=== PATIENT | male | born 1950 | race Caucasian/White ===

== ENCOUNTER → 2017-08-26 | Outpatient (CLI) | payer BC, MEDICARE ==
--- NOTE | 2017-09-02 13:50 | HM ---
24-hour Holter monitor shows sinus mechanism heart rates from 36-111 beats a minute Nighttime bradycardia No daytime bradycardia Patient has PVCs ventricular couplets and triplets but the overall PVC burden is low and less than 1% No sustained VT MTDD
== END | disposition home or self-care (01) ==
LOC: RADECHMAIN 12:23
PROVIDERS: ATTEND Internal Medicine Interventional Cardiology
DX: I48.91 Unspecified atrial fibrillation (principal); I10 Essential (primary) hypertension
CPT/HCPCS: 93225; 93226

== ENCOUNTER → 2017-10-07 | Outpatient (CLI) | payer MEDICARE ==
[2017-10-07 14:38] LABS: MCH 33.7 pg (25.0-35.0); MCHC 36.9 g/dL (31.0-37.0); MCV 91.3 fL (80.0-100.0); Mean Platelet Volume 7.8; Platelet Count 190 k/uL (150-450); RBC 5.04 m/uL (4.30-5.90); RDW 13.2 % (11.5-15.5); WBC 10.2 k/uL (3.8-10.6)
[2017-10-07 14:55] LABS: Anion Gap 8 mmol/L; Blood Urea Nitrogen 18 mg/dL (9-20); Carbon Dioxide 29 mmol/L (22-30); Chloride 102 mmol/L (98-107); Potassium 3.8 mmol/L (3.5-5.1); Sodium 139 mmol/L (137-145)
== END | disposition home or self-care (01) ==
LOC: LABPAT 14:11
PROVIDERS: ATTEND Internal Medicine Interventional Cardiology
DX: Z01.812 Encounter for preprocedural laboratory examination (principal); I48.91 Unspecified atrial fibrillation
CPT/HCPCS: 36415; 80051; 82565; 84520; 85027

== ENCOUNTER → 2017-10-13 | Day surgery (SDC) | payer MEDICARE ==
[2017-10-11 14:34] VITALS: BMI 43.6
[~2017-10-13] MED LIST: LACTATED RINGERS 1,000 ML IV SCH; LIDOCAINE 1% INJ 10MG/ML (20 ML MDV) ONE; PROPOFOL 10 MG/ML 20 ML VIAL IV ONE; SODIUM CHLORIDE 0.9% 1,000 ML IV SCH
[2017-10-13 09:05] VITALS: TEMP 98.2
[2017-10-13 09:20] LABS: Glucose,Whole Blood 175 mg/dL (75-99)
--- NOTE | 2017-10-13 10:31 | CE ---
CARDIAC ELECTROPHYSIOLOGY REPORT DATE OF SERVICE: 10/13/2017 PROCEDURE: Electrical cardioversion. INDICATION: Persistent atrial fibrillation. CLINICAL INFORMATION: Mr. Izabela Michele is a 66-year-old gentleman with history of hypertension, hyperlipidemia, and probably recent onset persistent atrial fibrillation, unresponsive to pharmacological efforts. He was advised electrical cardioversion and brought in for the procedure electively. PROCEDURE NOTE: Under the influence of ultra short-acting intravenous anesthetic agent with the attendance of the anesthesiologist, two shocks were delivered with anterior and posterior patches in a synchronized fashion of 300 joules each. Patient did not convert to sinus rhythm and remained in atrial fib with a controlled rate. He was hemodynamically stable and neurologically intact. This was an unsuccessful electrical cardioversion. MMODL / IJN: [id number] /
[2017-10-13 11:02] VITALS: BP 151/88; PULSE 70; RESP 18
== END ==
LOC: CATHCVL 08:29
PROVIDERS: ATTEND Internal Medicine Interventional Cardiology
DX: I48.1 Persistent atrial fibrillation (principal); I10 Essential (primary) hypertension; E78.00 Pure hypercholesterolemia, unspecified; Z98.84 Bariatric surgery status; E66.01 Morbid (severe) obesity due to excess calories; Z68.41 Body mass index [BMI] 40.0-44.9, adult; E11.9 Type 2 diabetes mellitus without complications; I25.10 Atherosclerotic heart disease of native coronary artery without angina pectoris; F17.210 Nicotine dependence, cigarettes, uncomplicated; Z79.01 Long term (current) use of anticoagulants; Z79.84 Long term (current) use of oral hypoglycemic drugs; Z79.899 Other long term (current) drug therapy
CPT/HCPCS: 92960; J2001; J2704

== ENCOUNTER 2020-01-15 21:30 | Emergency (ER) | payer MEDICARE ==
[2020-01-15] MEDS ORDERED: ACETAMINOPHEN TAB 325 MG TAB PO STA (22:25)
--- NOTE | 2020-01-15 22:28 | ED ---
SOB HPI - General Chief Complaint: Shortness of Breath Stated Complaint: High BP,SOB Time Seen by Provider: 01/15/20 22:02 Source: patient Mode of arrival: ambulatory Limitations: no limitations - History of Present Illness Initial Comments: 's patient is a 69-year-old man who presents to be evaluated for shortness of breath. The patient states that he noticed he was feeling generalized fatigue all day. He states that he was getting ready for bed tonight and then he put on his home CPAP machine and started feeling like he was short of breath. The patient states that he took his blood pressure at home and it was over 200 systolic. He also had a fever to 101 at home. Patient denies chest pain or cough. No congestion or sore throat. He does note that he is feeling better now, with no dyspnea. MD Complaint: shortness of breath Onset/Timin -: days(s) Severity scale (1-10): 0 Consistency: constant Improves With: nothing Worsens With: nothing Treatments Prior to Arrival: none - Related Data Home Oxygen Therapy: No Home Medications Medication Instructions Recorded Confirmed Multivitamin [Men's Multi-Vitamin] 1 tab PO DAILY 07/04/14 01/15/20 Metoprolol Tartrate [Lopressor] 25 mg PO HS 10/11/17 01/15/20 Metoprolol Tartrate [Lopressor] 50 mg PO DAILY 10/11/17 01/15/20 Potassium Chloride [Klor-Con 20] 20 meq PO DAILY 10/11/17 01/15/20 Rivaroxaban [Xarelto] 20 mg PO DAILY 10/11/17 01/15/20 hydrALAZINE HCL [Apresoline] 50 mg PO BID 10/11/17 01/15/20 metFORMIN HCL [Glucophage] 500 mg PO BID 10/11/17 01/15/20 Glimepiride [Amaryl] 2 mg PO AC-BRKFST 01/15/20 01/15/20 Losartan Potassium 100 mg PO DAILY 01/15/20 01/15/20 Pioglitazone [Actos] 15 mg PO DAILY 01/15/20 01/15/20 amLODIPine [Norvasc] 5 mg PO DAILY 01/15/20 01/15/20 hydroCHLOROthiazide [Hydrodiuril] 25 mg PO DAILY 01/15/20 01/15/20 Allergies Allergy/AdvReac Type Severity Reaction Status Date / Time nitrofurantoin Allergy Rash/Hives Verified 01/15/20 23:24 [From Macrobid] nitrofurantoin Allergy Rash/Hives Verified 01/15/20 23:24 macrocrystalline [From Macrobid] Penicillins Allergy Unknown Verified 01/15/20 23:24 Childhood Review of Systems ROS Statement: Those systems with pertinent positive or pertinent negative responses have been documented in the HPI. ROS Other: All systems not noted in ROS Statement are negative. Constitutional: Reports: fever. Denies: chills, weakness ENT: Denies: throat pain, congestion Respiratory: Reports: dyspnea. Denies: cough, wheezes, hemoptysis Cardiovascular: Denies: chest pain, palpitations, orthopnea, edema, syncope Endocrine: Reports: fatigue Gastrointestinal: Denies: abdominal pain, nausea, vomiting Genitourinary: Denies: dysuria, hematuria Skin: Denies: rash Neurological: Denies: headache, weakness, numbness Past Medical History Past Medical History: Cancer, Prostate Disorder, Sleep Apnea/CPAP/BIPAP Additional Past Medical History / Comment(s): HX OF BLADDER CA, HX BLADDER STONES, RECURRENT UTI, CPAP @ HS History of Any Multi-Drug Resistant Organisms: None Reported Past Surgical History: Prostate Surgery Additional Past Surgical History / Comment(s): BLADDER STONES ,LAP BAND, COLONOSCOPY, LEFT KIDNEY SURGERY Past Anesthesia/Blood Transfusion Reactions: No Reported Reaction Past Psychological History: No Psychological Hx Reported Past Alcohol Use History: Occasional Past Drug Use History: None Reported - Past Family History Father Family Medical History: Cancer Additional Family Medical History / Comment(s): Colon cancer. Mother Family Medical History: Diabetes Mellitus, Hypertension General Exam Limitations: no limitations General appearance: alert, in no apparent distress Head exam: Present: atraumatic, normocephalic Eye exam: Present: normal appearance. Absent: scleral icterus, conjunctival injection ENT exam: Present: normal oropharynx Neck exam: Present: normal inspection, full ROM Respiratory exam: Present: normal lung sounds bilaterally. Absent: respiratory distress, wheezes, rales, rhonchi, stridor Cardiovascular Exam: Present: regular rate, normal rhythm, normal heart sounds. Absent: systolic murmur, diastolic murmur, rubs, gallop GI/Abdominal exam: Present: soft. Absent: distended, tenderness, guarding, rebound, rigid, mass Extremities exam: Present: normal inspection, normal capillary refill. Absent: pedal edema, calf tenderness Back exam: Present: normal inspection. Absent: CVA tenderness (R), CVA tenderness (L) Neurological exam: Present: alert Skin exam: Present: warm, dry, intact, normal color. Absent: rash Course Vital Signs 01/15/20 01/15/20 21:55 22:57 Temperature 99.7 F H Pulse Rate 74 62 Respiratory 18 20 Rate Blood Pressure 159/90 147/77 O2 Sat by Pulse 95 95 Oximetry Medical Decision Making - Lab Data Result diagrams: 01/15/20 22:56 01/15/20 22:56 Lab Results 01/15/20 01/15/20 01/15/20 Range/Units 22:56 22:56 22:56 WBC 9.2 (3.8-10.6) k/uL RBC 5.03 (4.30-5.90) m/uL Hgb 15.7 (13.0-17.5) gm/dL Hct 46.5 (39.0-53.0) % MCV 92.5 (80.0-100.0) fL MCH 31.2 (25.0-35.0) pg MCHC 33.8 (31.0-37.0) g/dL RDW 13.2 (11.5-15.5) % Plt Count 190 (150-450) k/uL MPV 7.4 Neutrophils % 75 % Lymphocytes % 12 % Monocytes % 7 % Eosinophils % 2 % Basophils % 4 % Neutrophils # 6.9 (1.3-7.7) k/uL Lymphocytes # 1.1 (1.0-4.8) k/uL Monocytes # 0.7 (0-1.0) k/uL Eosinophils # 0.2 (0-0.7) k/uL Basophils # 0.3 H (0-0.2) k/uL PT 10.3 (9.0-12.0) sec INR 1.0 (<1.2) APTT 25.9 (22.0-30.0) sec D-Dimer 0.25 (<0.60) mg/L FEU Sodium 135 L (137-145) mmol/L Potassium 3.8 (3.5-5.1) mmol/L Chloride 102 (98-107) mmol/L Carbon Dioxide 27 (22-30) mmol/L Anion Gap 6 mmol/L BUN 18 (9-20) mg/dL Creatinine 1.05 (0.66-1.25) mg/dL Est GFR (CKD-EPI)AfAm 83 (>60 ml/min/1.73 sqM) Est GFR (CKD-EPI)NonAf 72 (>60 ml/min/1.73 sqM) Glucose 148 H (74-99) mg/dL Plasma Lactic Acid Fernando (0.7-2.0) mmol/L Calcium 8.5 (8.4-10.2) mg/dL Total Bilirubin 0.5 (0.2-1.3) mg/dL AST 30 (17-59) U/L ALT 28 (4-49) U/L Alkaline Phosphatase 59 (38-126) U/L Troponin I (0.000-0.034) ng/mL NT-Pro-B Natriuret Pep pg/mL Total Protein 6.7 (6.3-8.2) g/dL Albumin 3.8 (3.5-5.0) g/dL 01/15/20 01/15/20 01/15/20 Range/Units 22:56 22:56 22:56 WBC (3.8-10.6) k/uL RBC (4.30-5.90) m/uL Hgb (13.0-17.5) gm/dL Hct (39.0-53.0) % MCV (80.0-100.0) fL MCH (25.0-35.0) pg MCHC (31.0-37.0) g/dL RDW (11.5-15.5) % Plt Count (150-450) k/uL MPV Neutrophils % % Lymphocytes % % Monocytes % % Eosinophils % % Basophils % % Neutrophils # (1.3-7.7) k/uL Lymphocytes # (1.0-4.8) k/uL Monocytes # (0-1.0) k/uL Eosinophils # (0-0.7) k/uL Basophils # (0-0.2) k/uL PT (9.0-12.0) sec INR (<1.2) APTT (22.0-30.0) sec D-Dimer (<0.60) mg/L FEU Sodium (137-145) mmol/L Potassium (3.5-5.1) mmol/L Chloride (98-107) mmol/L Carbon Dioxide (22-30) mmol/L Anion Gap mmol/L BUN (9-20) mg/dL Creatinine (0.66-1.25) mg/dL Est GFR (CKD-EPI)AfAm (>60 ml/min/1.73 sqM) Est GFR (CKD-EPI)NonAf (>60 ml/min/1.73 sqM) Glucose (74-99) mg/dL Plasma Lactic Acid Fernando 1.3 (0.7-2.0) mmol/L Calcium (8.4-10.2) mg/dL Total Bilirubin (0.2-1.3) mg/dL AST (17-59) U/L ALT (4-49) U/L Alkaline Phosphatase (38-126) U/L Troponin I 0.013 (0.000-0.034) ng/mL NT-Pro-B Natriuret Pep 758 pg/mL Total Protein (6.3-8.2) g/dL Albumin (3.5-5.0) g/dL - EKG Data -: EKG Interpreted by Mi EKG shows normal: axis (Left axis deviation), intervals (Normal), QRS complexes (There is appear to be an incomplete right bundle branch block.) Interpretation: other (Underlying rhythm is atrial fibrillation, which is chronic, rate 72 bpm. low-voltage QRS complex) Disposition Clinical Impression: Dyspnea Disposition: HOME SELF-CARE Condition: Good Instructions (If sedation given, give patient instructions): Dyspnea (ED) Is patient prescribed a controlled substance at d/c from ED?: No Referrals: Marcelino Gomez MD [Primary Care Provider] - 1-2 days
--- NOTE | 2020-01-15 22:44 | XR ---
EXAMINATION TYPE: XR chest 2V DATE OF EXAM: 01/15/2020 COMPARISON: NONE HISTORY: Fever and cough TECHNIQUE: FINDINGS: Heart is normal. Lungs are clear. Diaphragm is normal. Bony thorax is intact. There are no hilar masses. Mediastinum is within normal limits. IMPRESSION: Normal chest.
[2020-01-15 23:07] LABS: Basophils # (A) 0.3 k/uL (0-0.2); Basophils % (A) 4 %; Eosinophils # (A) 0.2 k/uL (0-0.7); Eosinophils % (A) 2 %; HCT 46.5 % (39.0-53.0); HGB 15.7 gm/dL (13.0-17.5); Lymphocytes # (A) 1.1 k/uL (1.0-4.8); Lymphocytes % (A) 12 %; MCH 31.2 pg (25.0-35.0); MCHC 33.8 g/dL (31.0-37.0); MCV 92.5 fL (80.0-100.0); Mean Platelet Volume 7.4; Monocytes # (A) 0.7 k/uL (0-1.0); Monocytes % (A) 7 %; Neutrophils # (A) 6.9 k/uL (1.3-7.7); Neutrophils % (A) 75 %; Platelet Count 190 k/uL (150-450); RBC 5.03 m/uL (4.30-5.90); RDW 13.2 % (11.5-15.5); WBC 9.2 k/uL (3.8-10.6)
[2020-01-15 23:15] LABS: Albumin 3.8 g/dL (3.5-5.0); Calcium 8.5 mg/dL (8.4-10.2); Potassium 3.8 mmol/L (3.5-5.1); Total Bilirubin 0.5 mg/dL (0.2-1.3); Total Protein 6.7 g/dL (6.3-8.2)
[2020-01-15 23:23] LABS: D-Dimer 0.25 mg/L FEU (<0.60); Partial Thromboplastin Time 25.9 sec (22.0-30.0); Prothrombin Time 10.3 sec (9.0-12.0)
[2020-01-16 00:07] VITALS: BP 156/81; PULSE 68; RESP 18; TEMP 97.7
== END 2020-01-16 00:20 | disposition home or self-care (01) ==
LOC: EC 21:30
DX: U07.1 COVID-19 (principal); G47.30 Sleep apnea, unspecified; Z88.0 Allergy status to penicillin; Z88.1 Allergy status to other antibiotic agents; Z85.51 Personal history of malignant neoplasm of bladder; Z99.89 Dependence on other enabling machines and devices; Z98.890 Other specified postprocedural states
CPT/HCPCS: 36415; 93005; 85379; 83880; 80053; 83605; 84484; 85025; 85610; 85730; 84145; 71046; 99285; U0003

== ENCOUNTER → 2022-02-09 | Outpatient (CLI) | payer MEDICARE ==
--- NOTE | 2022-02-09 15:03 | P.BASOAP ---
Subjective Progress Note Date: 02/09/22 Principal diagnosis: Morbid obesity 71-year-old male here with complaints of dysphagia. Patient had a lap band placed 15-20 years ago. Many years ago the patient has band emptied. He is not sure how much fluid is removed and what size band he had at that time. He says his esophagus was dilated back then. Over the last few months patient has had increased dysphagia and regurgitation. He has had significant weight loss in the last few months. Objective - Exam Abdomen: Soft, nontender, nondistended Assessment/Plan (1) Morbid obesity Narrative/Plan: 71-year-old male with dysphagia after previous lap band placement. Will empty the patient's band at this time. Check esophagogram. Further recommendations to follow. The patient's lap band port was palpated. The site was aseptically prepped. The Fernandez needle was advanced into the port. A total of 1 ml of fluid was removed. Band was now empty. Pressure was held and a sterile dressing was applied. Plan: Date: Initial Weight: Initial BMI: Current Weight: Current BMI: Type of Surgery: Total Volume in Band: Previous Volume: Volume Removed: Volume Added: Band Size:
[2022-02-09 15:33] VITALS: BP 170/99; PULSE 70; TEMP 97.3; BMI 41.5
--- NOTE | 2022-02-09 17:20 | FL ---
SINGLE CONTRAST BARIUM SWALLOW: CLINICAL HISTORY: 71-year-old male R13.10, dysphagia , food sticking, rapid weight loss. TECHNIQUE: Single contrast exam performed with one large swallow of thin barium. Total fluoroscopy time: 1 minute 42 seconds. Total images: 18. FINDINGS: Lap band device remains appropriately positioned. We assessed the cervical esophagus during the initi al swallow. There is no cricopharyngeal bar, diverticulum, narrowing, or aspiration. There is passage of contrast to the distal esophagus. Recurrent episodes of intraesophageal reflux an d peristaltic waves attempt to propulse the bolus into the stomach but there is the appearance of irr egular narrowing esophagus above the GE junction. Secondary dilatation of the distal esophagus. Contr ast remains pooled in the thoracic esophagus into the upper chest. Only trickle flow into the proxima l stomach then across the lap band into the distal stomach. IMPRESSION: Distal esophageal stricture resulting in a moderate to severe obstruction. Recommend direct visualiza tion as a malignant stricture is not excluded. The stricture is at the distal esophagus, prior to the upper stomach and lap band. No evidence for lap band prolapse. The patient had only a single large s wallow and the contrast pools to the upper chest.
== END ==
LOC: BARWHC3 14:25
PROVIDERS: ATTEND Surgery
DX: E66.01 Morbid (severe) obesity due to excess calories (principal); F17.200 Nicotine dependence, unspecified, uncomplicated; Z68.41 Body mass index [BMI] 40.0-44.9, adult; Z88.0 Allergy status to penicillin; Z88.1 Allergy status to other antibiotic agents
CPT/HCPCS: 74220; G0463; 99213

== ENCOUNTER 2022-02-11 12:06 | Day surgery (SDC) | payer MEDICARE ==
[2022-02-10 14:26] VITALS: BMI 46.0
[2022-02-11] MEDS ORDERED: LACTATED RINGERS 1,000 ML IV ONE ×2 (12:51)
[2022-02-11 13:03] VITALS: RESP 18; TEMP 97.7
[2022-02-11 13:04] LABS: Glucose,Whole Blood 145 mg/dL (70-110)
[2022-02-11] MEDS ORDERED: LABETALOL SYRINGE 5 MG/ML IVP ONE (13:25)
[2022-02-11] MEDS ORDERED: LIDOCAINE 2% INJ 20 MG/ML (2 ML VIAL) ONE (14:03)
[2022-02-11] MEDS ORDERED: hydrALAZINE HCL 20 MG/ML 1 ML VIAL ONE (14:03)
[2022-02-11] MEDS ORDERED: PROPOFOL 10 MG/ML 20 ML VIAL IV ONE (14:03)
--- NOTE | 2022-02-11 14:33 | P.GSHP ---
History of Present Illness H&P Date: 02/11/22 Chief Complaint: Dysphagia 71-year-old male seen in the bariatric center 2 days ago. The patient's band was loosened. He then went for esophagram which showed narrowing of the distal esophagus. Here today for upper endoscopy. Past Medical History Past Medical History: Atrial Fibrillation, Cancer, Hypertension, Prostate Disorder, Sleep Apnea/CPAP/BIPAP Additional Past Medical History / Comment(s): HX OF BLADDER CA, HX BLADDER STONES, RECURRENT UTI, CPAP @ HS History of Any Multi-Drug Resistant Organisms: None Reported Past Surgical History: Prostate Surgery Additional Past Surgical History / Comment(s): BLADDER STONES ,LAP BAND, COLONOSCOPY, LEFT KIDNEY SURGERY Past Anesthesia/Blood Transfusion Reactions: No Reported Reaction Smoking Status: Former smoker - Past Family History Father Family Medical History: Cancer Additional Family Medical History / Comment(s): Colon cancer. Mother Family Medical History: Diabetes Mellitus, Hypertension Medications and Allergies Home Medications Medication Instructions Recorded Confirmed Type Multivitamin [Men's Multi-Vitamin] 1 tab PO DAILY 07/04/14 02/11/22 History Metoprolol Tartrate [Lopressor] 25 mg PO HS 10/11/17 02/11/22 History Metoprolol Tartrate [Lopressor] 50 mg PO DAILY 10/11/17 02/11/22 History Rivaroxaban [Xarelto] 20 mg PO DAILY 10/11/17 02/11/22 History metFORMIN HCL [Glucophage] 500 mg PO BID 10/11/17 02/11/22 History Glimepiride [Amaryl] 2 mg PO AC-BRKFST 01/15/20 02/11/22 History Losartan Potassium 100 mg PO DAILY 01/15/20 02/11/22 History Pioglitazone [Actos] 15 mg PO DAILY 01/15/20 02/11/22 History amLODIPine [Norvasc] 5 mg PO DAILY 01/15/20 02/11/22 History hydroCHLOROthiazide [Hydrodiuril] 12.25 mg PO DAILY 01/15/20 02/11/22 History Potassium Chloride [Klor-Con 20 20 meq PO DAILY 02/10/22 02/11/22 History Packets] Allergies Allergy/AdvReac Type Severity Reaction Status Date / Time nitrofurantoin Allergy Rash/Hives Verified 02/11/22 12:45 [From Macrobid] nitrofurantoin Allergy Rash/Hives Verified 02/11/22 12:45 macrocrystalline [From Macrobid] Penicillins Allergy Unknown Verified 02/11/22 12:45 Childhood Surgical - Exam Vital Signs Temp Pulse Resp BP Pulse Ox 97.7 F 89 18 204/98 95 02/11/22 12:52 02/11/22 12:52 02/11/22 12:52 02/11/22 12:52 02/11/22 12:52 Physical exam: General: Well-developed, well-nourished HEENT: Normocephalic, sclerae nonicteric Abdomen: Nontender, nondistended Extremities: No edema Neuro: Alert and oriented Results - Labs Abnormal Lab Results - Last 24 Hours (Table) 02/11/22 Range/Units 13:01 POC Glucose (mg/dL) 145 H (70-110) mg/dL Assessment and Plan (1) Dysphagia Narrative/Plan: Will proceed with upper endoscopy at this time. Current Visit: Yes Status: Acute Code(s): R13.10 - DYSPHAGIA, UNSPECIFIED SNOMED Code(s): 49244264
--- NOTE | 2022-02-11 14:40 | P.PCN ---
Date of Procedure: 02/11/22 Procedure(s) Performed: Preoperative Dx: Dysphagia, GERD Postoperative Dx: Distal esophageal mass Procedure: EGD with Bx Anesthesia: Sedation Endoscopist: Dr. Damon Specimens: Distal esophageal mass Endoscopic Procedure: The patient was on the endoscopy table in the left decubitus position. The Olympus gastroscope was inserted into the oropharynx and passed under direct visualization to the region of the third portion of the duodenum. From that point the scope was slowly withdrawn inspecting all carmen faces carefully. There were no neoplastic inflammatory or polypoid lesions throughout the duodenum. The pylorus was widely patent. The stomach was carefully inspected. There was minimal gastritis present. Retroflexion revealed a previous band plication. There were inflammatory changes in the cardia of the stomach with some thickening of the mucosa present in the cardiac folds. There was no evidence of erosion. The band appeared appropriately open. The pouch above the band was properly size. Extending from the proximal pouch up a distance of approximately 8 cm was a circumferential ulcerated mass. Several biopsies were taken. This appeared malignant. The proximal esophagus appeared normal. The patient was then taken to the recovery room in stable condition per anesthesia guidelines. Recommendations: Await biopsy results. Follow-up in the office [address] chest and abdomen pelvis.
[2022-02-11 15:12] VITALS: BP 178/87; PULSE 89
== END 2022-02-11 15:23 | disposition home or self-care (01) ==
LOC: ORWHC2ENDO 12:06
PROVIDERS: ATTEND Surgery
DX: K22.9 Disease of esophagus, unspecified (principal); K21.9 Gastro-esophageal reflux disease without esophagitis; I48.91 Unspecified atrial fibrillation; I10 Essential (primary) hypertension; G47.33 Obstructive sleep apnea (adult) (pediatric); N42.9 Disorder of prostate, unspecified; Z98.890 Other specified postprocedural states; Z99.89 Dependence on other enabling machines and devices; Z87.891 Personal history of nicotine dependence; Z80.0 Family history of malignant neoplasm of digestive organs; Z83.3 Family history of diabetes mellitus; Z82.49 Family history of ischemic heart disease and other diseases of the circulatory system; Z79.84 Long term (current) use of oral hypoglycemic drugs; Z79.899 Other long term (current) drug therapy; Z88.0 Allergy status to penicillin; Z88.3 Allergy status to other anti-infective agents
CPT/HCPCS: 88305; 88342; 88341; 43239; J0360; J2704; J2001

== ENCOUNTER → 2022-02-15 | Outpatient (CLI) | payer MEDICARE ==
[2022-02-15 08:38] LABS: African American GFR (CKD) >90 (>60 ml/min/1.73 sqM); Blood Urea Nitrogen 14 mg/dL (9-20); Non-African American GFR(CKD) >90 (>60 ml/min/1.73 sqM)
--- NOTE | 2022-02-15 10:05 | CT ---
EXAMINATION TYPE: CT ChestAbdPelvis w con DATE OF EXAM: 02/15/2022 COMPARISON: Prior CT abdomen and pelvis 2013. Recent esophagram February 09, 2022 HISTORY: Malignant neoplasm of esophagus, unspecified. Newly diagnosed. History of bladder cancer. Sy mptoms of dysphagia for [address] DLP: 3655.70 mGycm. Automated Exposure Control for Dose Reduction was Utilized. CONTRAST: CT scan of the thorax, abdomen and pelvis is performed with IV Contrast, patient injected with 100 ml mL of Isovue 300. FINDINGS: LUNGS: Tiny left-sided pleural effusion. Small to moderate-sized right pleural effusion. Scattered sm all pulmonary nodules bilaterally consistent with metastatic disease. For reference is a 9 mm lingula r nodule axial image 40. No pneumothorax seen bilaterally. MEDIASTINUM: Prominent bilateral hilar lymph nodes. Some prominent mediastinal lymph nodes. For refer ence is 1.4 x 0.8 cm anterior superior mediastinal lymph node adjacent to left common carotid artery axial image 17. Severe wall thickening of the distal esophagus just above the lap band likely site of neoplasm. Heart size upper limits of normal. No pericardial effusion is seen. Coronary artery calc ification is present which is noted marker for underlying coronary artery disease. Nonspecific 1.3 x 0.9 cm lymph node anterior to the mid to distal esophagus on axial image 43. LIVER/GB: Dependent small gallstones and/or gallbladder sludge. PANCREAS: No significant abnormality is seen. SPLEEN: No significant abnormality is seen. ADRENALS: No significant abnormality is seen. KIDNEYS: Symmetric cortical medullary uptake and excretion without hydronephrosis seen bilaterally. C ortical thinning is present bilaterally. A few tiny thin-walled cysts in the bilateral kidneys are no didier. There is larger exophytic 6.9 cm thin-walled cyst laterally in the right kidney coronal image 56 . There is 5.2 cm cm exophytic predominantly fat and less degree soft tissue mass from the left kidne y laterally upper pole level axial image 70 consistent with large angiomyolipoma. BOWEL: Some residual barium from esophagram noted in the colon particularly distal colon. No suspicio us small or large bowel dilatation. The lap band position and angle appears satisfactory epigastric r egion. Some diverticula near the splenic flexure and in the sigmoid colon. No CT evidence for acute d iverticulitis. GENITAL ORGANS: No gross abnormality seen. LYMPH NODES: No greater than 1cm abdominal or pelvic lymph nodes are appreciated. OSSEOUS STRUCTURES: Multilevel spurring in the thoracolumbar spine. Facet arthropathy lower lumbar le vels. Multilevel spurring in the spine is present. Facet arthropathy lower lumbar levels. Moderate ax ial joint space loss and spurring of both hips. OTHER: Small to moderate-sized fat-containing bilateral inguinal hernias. IMPRESSION: Suspicious severe thickening of the distal esophagus just above the diaphragmatic hiatus consistent with neoplasm. There is pulmonary hematogenous metastatic disease noted.
== END | disposition home or self-care (01) ==
LOC: RADCTMAIN 07:42
PROVIDERS: ATTEND Surgery
DX: C15.9 Malignant neoplasm of esophagus, unspecified (principal); C78.00 Secondary malignant neoplasm of unspecified lung; Z85.51 Personal history of malignant neoplasm of bladder
CPT/HCPCS: 82565; 84520; 71260; 74177; 36415; Q9967

== ENCOUNTER → 2022-02-26 | Outpatient (CLI) | payer MEDICARE ==
--- NOTE | 2022-02-28 12:41 | PE ---
EXAMINATION TYPE: PET CT fusion skull to thigh DATE OF EXAM: 02/26/2022 CLINICAL INDICATION:Male, 71 years old with history of D13.0; TECHNIQUE: Following the intravenous administration of 12.85 mCi of F-18 FDG, whole body images are performed from the skull base to the midthigh. Images are reviewed on the computer in the coronal, axial, and sagittal planes. Reconstructed rotating images are created on independent workstation and reviewed on the computer. A non-contrast CT is performed in conjunction with the PET scan. Glucose level 158 mg/dL COMPARISON: CT -, PET/CT None, FINDINGS: Mediastinal SUV mean is 1.8. Hepatic parenchyma SUV mean is 2.5. SKULL BASE AND NECK: No suspicious radiotracer activity. CHEST, MEDIASTINUM, AND HILAR REGION: * Distal esophageal wall thickening with increased radiotracer activity max SUV 10.6. Masslike uptak e measuring at least 6.6 x 4.0 x 4.0 cm with more linear uptake extending superiorly along the esopha geal wall. * Scattered pulmonary nodules throughout the lungs consistent with metastatic disease. Examples incl ude right upper lobe measuring 6 mm in the left upper lobe measuring 8 mm. These are all under the se nsitivity for PET/CT. ABDOMEN AND PELVIS: No suspicious radiotracer activity. OSSEOUS STRUCTURES: No suspicious radiotracer activity. OTHER CT: Small to moderate right pleural effusion and trace left pleural effusion. The heart is mild ly enlarged for size. Coronary artery atherosclerosis. Moderate hiatal hernia. Gastric lap band is pr esent. IMPRESSION: 1. Distal esophageal mass just superior to the gastric lap band consistent with malignancy. There ar e innumerable pulmonary nodules throughout the lungs which are below the sensitivity for PET/CT R mos t consistent with metastatic disease. No evidence for distant metastatic disease at this time 2. Enlarging right pleural effusion and similar trace left pleural effusion with associated atelecta sis.
== END | disposition home or self-care (01) ==
LOC: RADPETMAIN 08:18
PROVIDERS: ATTEND Internal Medicine Hematology & Oncology
DX: D13.0 Benign neoplasm of esophagus (principal); J90 Pleural effusion, not elsewhere classified; R91.8 Other nonspecific abnormal finding of lung field
CPT/HCPCS: 78815; A9552

== ENCOUNTER → 2022-03-04 | Day surgery (SDC) | payer MEDICARE ==
[2022-03-04 11:56] VITALS: TEMP 98
[2022-03-04 12:26] VITALS: BP 163/93; PULSE 100; RESP 18
--- NOTE | 2022-03-04 12:51 | XR ---
EXAMINATION TYPE: XR chest 1V portable DATE OF EXAM: 03/04/2022 COMPARISON: 01/15/2020 INDICATION: Postthoracentesis right side TECHNIQUE: Single frontal view of the chest is obtained. FINDINGS: The heart size is normal. The pulmonary vasculature is normal. No pneumothorax is evident. Minimal blunting of the right costophrenic angle may remain present. IMPRESSION: 1. Minimal residual pleural effusion right costophrenic angle. 2. No pneumothorax postthoracentesis.
--- NOTE | 2022-03-04 12:52 | P.PCN ---
Date of Procedure: 03/04/22 Preoperative Diagnosis: Right-sided pleural effusion, multiple pulmonary nodules consistent with metastatic disease Postoperative Diagnosis: Right-sided pleural effusion Procedure(s) Performed: Right-sided thoracentesis Anesthesia: local Surgeon: Justin Juarez Estimated Blood Loss (ml): 0 Pathology: other Condition: stable Disposition: same day Operative Findings: A time out was performed and the chest x-ray was reviewed, the appropriate side was confirmed and marked. My hands were washed immediately prior to the procedure. I wore a surgical cap, mask with protective eyewear, sterile gown and sterile gloves throughout the procedure. The patient was prepped and draped in a sterile manner using chlorhexidine scrub after the appropriate level was percussed and confirmed by ultrasound. 1% lidocaine was used to anesthesize the skin, subcutaneous tissue, superior aspect of the rib periosteum and parietal pleura. A finder needle was then introduced over the superior aspect of the rib to locate the pleural fluid; 2colored fluid was aspirated at a depth of approximately 2 cm. A 10-blade scalpel was used to marisol the skin at the insertion site. The [id number] needle was then introduced through the skin incision into the pleural space using negative aspiration pressure and the red colometric indicator to confirm appropriate positioning of the needle. The thoracentesis catheter was then threaded without difficulty. 1650 ml of turbid colored fluid was removed without difficulty. The catheter was then removed. No immediate complications were noted during the procedure. A post-procedure chest x-ray is pending at the time of this note. The fluid will be sent for studies. Estimated blood loss is 0cc
[2022-03-05 00:06] LABS: Glucose, BF Source Pleural Fluid; Glucose, Body Fluid 177 mg/dL; LDH, Body Fluid Source Pleural Fluid; T. Protein, Body Fluid Source Pleural Fluid; Total Protein, Body Fluid 4340 mg/dL
[2022-03-05 01:02] LABS: Appearance,BF Clear
== END ==
LOC: PROCWHC3 11:19
PROVIDERS: ATTEND Internal Medicine Critical Care Medicine
DX: J90 Pleural effusion, not elsewhere classified (principal); R91.8 Other nonspecific abnormal finding of lung field; C15.5 Malignant neoplasm of lower third of esophagus; Z92.21 Personal history of antineoplastic chemotherapy; I48.20 Chronic atrial fibrillation, unspecified; E11.9 Type 2 diabetes mellitus without complications; I10 Essential (primary) hypertension; E78.5 Hyperlipidemia, unspecified; Z86.16 Personal history of COVID-19; G47.30 Sleep apnea, unspecified; Z85.51 Personal history of malignant neoplasm of bladder; Z98.84 Bariatric surgery status; Z98.890 Other specified postprocedural states; E66.9 Obesity, unspecified; Z68.39 Body mass index [BMI] 39.0-39.9, adult; Z79.1 Long term (current) use of non-steroidal anti-inflammatories (NSAID); Z79.01 Long term (current) use of anticoagulants; Z79.02 Long term (current) use of antithrombotics/antiplatelets; Z79.84 Long term (current) use of oral hypoglycemic drugs; Z79.83 Long term (current) use of bisphosphonates; Z79.899 Other long term (current) drug therapy; Z79.810 Long term (current) use of selective estrogen receptor modulators (SERMs); Z88.0 Allergy status to penicillin; Z88.1 Allergy status to other antibiotic agents; Z80.0 Family history of malignant neoplasm of digestive organs; Z83.3 Family history of diabetes mellitus; Z82.49 Family history of ischemic heart disease and other diseases of the circulatory system; Z87.891 Personal history of nicotine dependence
CPT/HCPCS: 32555; 88108; 88305; 89050; 88342; 88341; 87070; 87205; 87075; 87116; 87206; 82945; 83615; 84157; 71045; 32554; J2001

== ENCOUNTER → 2022-03-11 | Outpatient (CLI) | payer MEDICARE ==
--- NOTE | 2022-03-11 20:40 | MR ---
"EXAMINATION TYPE: MR brain wo/w con DATE OF EXAM: 03/11/2022 COMPARISON: Correlation PET/CT 02/26/2022 HISTORY: 71-year-old male R41.82, C15.5, Forgetfulness, esophageal cancer TECHNIQUE: Multiplanar, multisequence images of the brain and brainstem were acquired before and aft er administration of 13 mL IV Gadavist. Diffusion weighted imaging is performed. FINDINGS: There is an area of restricted diffusion with corresponding low signal on ADC map extending from the inferior left occipital into the medial aspect of the posterior left parietal lobe. There is correspo nding bright signal on T2/FLAIR sequences but no associated enhancement in this region. There is background moderate cerebral cortical volume loss. Additional mild scattered T2 bright white matter foci in the subcortical regions especially in the temporal lobes suggesting changes of chroni c small vessel ischemic disease. T2/FLAIR weighted sequences show no suspicious intracranial susceptibility artifact to suggest prior intracranial microwave. No evidence for enhancing mass or hydrocephalus. No midline shift, herniation, or effacement of basal subarachnoid cisterns. Midline structures demonstrate normal morphology. The craniocervical junction is normal. Post contrast images demonstrate no other pathologic enhancement. Dural venous sinuses are patent. Moderate mucosal thickening throughout the ethmoid air cells. Orbits globes are intact. IMPRESSION: 1. Area of acute infarct involving the inferior left occipital lobe extending into the posterior medi al left parietal lobe. This involves a portion of the left CARE TRANSITION MANAGER territory. The infarct is greater ciara n 6 hours in duration given increased T2/FLAIR signal. No midline shift or herniation. 2. Moderate generalized cerebral cortical volume loss. No enhancing intracranial lesions to suggest i ntracranial metastases. A [place] level critical message alert has been initiated for Mani Venegas MD via the [facility] 0 | Critical Results System on 03/11/2022 8:38 PM. This message alert has been sent to Mani Venegas MD via the preferences provided by the clinician for the receipt of Radiology Critical Findings. [facility] ID [id number]."
== END | disposition home or self-care (01) ==
LOC: RADMRIMAIN 10:45
PROVIDERS: ATTEND Internal Medicine Hematology & Oncology
DX: C15.5 Malignant neoplasm of lower third of esophagus (principal); I63.9 Cerebral infarction, unspecified; G31.9 Degenerative disease of nervous system, unspecified; R41.82 Altered mental status, unspecified
CPT/HCPCS: 70553; A9585

== ENCOUNTER 2022-03-12 09:44 | Inpatient (IN) | payer MEDICARE ==
--- NOTE | 2022-03-12 11:27 | ED ---
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 fib on Xarelto who presents to the emergency Department with abnormal outpatient MRI. Patient recently diagnosed with esophageal cancer after a scope. He was found to have a very large pleural effusion for which she received a thoracentesis last and 1 L of malignant fluid was taken off. Patient reports that he had to stop his Xarelto for 72 hours in order to have the procedure performed. states that the day after the procedure the patient was confused. He was asking her questions like "is this our house" and also states "is this government housing?". They followed up with the primary care for the confusion. Primary care ordered an MRI which was completed yesterday. They received a call today stating that the patient had a stroke. He denies any new acute altered mental status changes. states that over the course of the week he has been improving. He resume taking his xarelto the day after the procedure. He denies previous history of stroke. No headache or visual changes. No dysarthria. He denies any lateralizing weakness. No other alleviating, precipitating or modifying factors - Related Data Home Medications: Home Medications Medication Instructions Recorded Confirmed Multivitamin [Men's Multi-Vitamin] 1 tab PO DAILY 07/04/14 03/12/22 Metoprolol Tartrate [Lopressor] 25 mg PO BID 10/11/17 03/12/22 Rivaroxaban [Xarelto] 20 mg PO DAILY 10/11/17 03/12/22 metFORMIN HCL [Glucophage] 500 mg PO BID 10/11/17 03/12/22 Glimepiride [Amaryl] 2 mg PO AC-BRKFST 01/15/20 03/12/22 Losartan Potassium 100 mg PO DAILY 01/15/20 03/12/22 Pioglitazone [Actos] 15 mg PO DAILY 01/15/20 03/12/22 amLODIPine [Norvasc] 5 mg PO DAILY 01/15/20 03/12/22 Potassium Chloride [Klor-Con 20 20 meq PO DAILY 02/10/22 03/12/22 Packets] Atorvastatin [Lipitor] 10 mg PO DAILY 03/12/22 03/12/22 Furosemide [Lasix] 40 mg PO DAILY PRN 03/12/22 03/12/22 Pantoprazole Sodium [Protonix] 40 mg PO DAILY 03/12/22 03/12/22 hydroCHLOROthiazide [Hydrodiuril] 12.5 mg PO DAILY 03/12/22 03/12/22 Allergies/Adverse Reactions: Allergies Allergy/AdvReac Type Severity Reaction Status Date / Time nitrofurantoin Allergy Rash/Hives Verified 03/12/22 13:51 [From Macrobid] nitrofurantoin Allergy Rash/Hives/ Verified 03/12/22 13:51 macrocrystalline Swelling [From Macrobid] Penicillins Allergy Unknown Verified 03/12/22 13:51 Childhood Review of Systems ROS Statement: Those systems with pertinent positive or pertinent negative responses have been documented in the HPI. ROS Other: All systems not noted in ROS Statement are negative. General Exam Limitations: no limitations General appearance: alert, in no apparent distress Head exam: Present: atraumatic, normocephalic, normal inspection Eye exam: Present: normal appearance, PERRL, EOMI. Absent: scleral icterus, conjunctival injection, periorbital swelling ENT exam: Present: normal exam, mucous membranes moist Neck exam: Present: normal inspection. Absent: tenderness, meningismus, lympha denopathy Respiratory exam: Present: normal lung sounds bilaterally. Absent: respiratory distress, wheezes, rales, rhonchi, stridor Cardiovascular Exam: Present: regular rate, normal rhythm, normal heart sounds. Absent: systolic murmur, diastolic murmur, rubs, gallop, clicks GI/Abdominal exam: Present: soft, normal bowel sounds. Absent: distended, tenderness, guarding, rebound, rigid Extremities exam: Present: normal inspection, full ROM, normal capillary refill. Absent: tenderness, pedal edema, joint swelling, calf tenderness Back exam: Present: normal inspection Neurological exam: Present: alert, oriented X3, CN II-XII intact Psychiatric exam: Present: normal affect, normal mood Skin exam: Present: warm, dry, intact, normal color. Absent: rash Stroke MDM - Lab Data Result diagrams: 03/14/22 07:26 03/14/22 07:26 Lab Results 03/12/22 03/12/22 Range/Units 12:39 12:[address] Glu mg/dL 165 Hemoglobin A1c 7.4 H (0.0-6.0) % Triglycerides 170.00 H (0.00-149.00) mg/dL Cholesterol 161.00 (0.00-200.00) mg/dL LDL Cholesterol, Calc 89.8 (0.0-131.0) mg/dL VLDL Cholesterol, Calc 34.00 (5.00-40.00) mg/dL HDL Cholesterol 37.20 L (40.00-60.00) mg/dL Cholesterol/HDL Ratio 4.33 Ratio - Medical Decision Making Was pt. sent in by a medical professional or institution (AL Lomeli, ANODIZE MACHINE OPERATOR, urgent care, hospital, or fpc...) When possible be specific pcp office Did you speak to anyone other than the patient for history (EMS, parent, family, police, friend...)? What history was obtained from this source Did you review nursing and triage notes (agree or disagree)? Why? @ -[I reviewed and agree with nursing and triage notes] Were old charts reviewed (outside hosp., previous admission, EMS record, old EKG, old radiological studies, urgent care reports/EKG's, fpc records)? Report findings thoracentesis path report, PET scan, MRI completed yesterday Differential Diagnosis (chest pain, altered mental status, abdominal pain women, abdominal pain men, vaginal bleeding, weakness, fever, dyspnea, syncope, headache, dizziness, GI bleed, back pain, seizure, CVA, palpatations, mental health)? CVA, metastatic cancer EKG interpreted by me (3pts min.). no X-rays interpreted by me (1pt min.). no CT interpreted by me (1pt min.). no U/S interpreted by me (1pt. min.). no What testing was considered but not performed or refused? (CT, X-rays, U/S, labs)? Why? @ -[None] What meds were considered but not given or refused? Why? @ -[None] Did you discuss the management of the patient with other professionals (professionals i.e. AL Lomeli, ANODIZE MACHINE OPERATOR, lab, RT, psych nurse, director of social services, visual merchandise manager, teacher, contracts officer, patient case coordinator)? Give summary dr mroeno and admitting physician Was smoking cessation discussed for >3mins.? @ -[No] Was critical care preformed (if so, how long)? yes, 35 minutes Were there social determinants of health that impacted care today? How? (Homelessness, low income, unemployed, alcoholism, drug addiction, transportation, low edu. Level, literacy, decrease access to med. care, senior care, rehab)? @ -[No] Was there de-escalation of care discussed even if they declined (Discuss DNR or withdrawal of care, Hospice)? DNR status @ -[No] What co-morbidities impacted this encounter? (DM, HTN, Smoking, COPD, CAD, Cancer, CVA, ARF, Chemo, Hep., AIDS, mental health diagnosis, sleep apnea, morbid obesity)? metastatic esophageal cancer Was patient admitted / discharged? Hospital course, mention meds given and route, prescriptions, significant lab abnormalities, going to OR and other pertinent info. Upon arrival patient was placed into room 10. Thorough history of physical exam is performed. I did interpret the patient's MRI. I did call and speak with Dr. Moreno in regards to his symptoms. Patient likely stroke while he was off of the blood thinner for his procedure. Dr. Moreno is requesting echo, carotid Dopplers and lipid testing. States that the patient would benefit from overnight observation with neurology consultation. Spoke with the patient regards this. He is eager to get this taken care of so that he can meet with oncology next week and get started on chemotherapy. Spoke with Dr. nam who is agreeable to admit the patient Undiagnosed new problem with uncertain prognosis? yes Drug Therapy requiring intensive monitoring for toxicity (Heparin, Nitro, Insulin, Cardizem)? @ -[No] Were any procedures done? @ -[No] Diagnosis/symptom? subacute cva Acute, or Chronic, or Acute on Chronic? subacute Uncomplicated (without systemic symptoms) or Complicated (systemic symptoms)? complicated Side effects of treatment? @ -[No] Exacerbation, Progression, or Severe Exacerbation? @ -[No] Poses a threat to life or bodily function? How? (Chest pain, [place], [place], pneumonia, PE, COPD, DKA, ARF, appy, cholecystitis, CVA, Diverticulitis, Homicidal, Suicidal, threat to staff... and all critical care pts) yes EKG demonstrates A. fib with a rate of 88. QRS 150. QTC of 450. Right bundle- branch. Based on artifact. No acute ST segment elevations 03/12/22 11:26 Past Medical History Past Medical History: Atrial Fibrillation, Cancer, Hypertension, Prostate Disorder, Sleep Apnea/CPAP/BIPAP Additional Past Medical History / Comment(s): HX OF BLADDER CA, HX BLADDER STONES, RECURRENT UTI, CPAP @ HS History of Any Multi-Drug Resistant Organisms: None Reported Past Surgical History: Prostate Surgery Additional Past Surgical History / Comment(s): BLADDER STONES ,LAP BAND, COLONOSCOPY, LEFT KIDNEY SURGERY Past Anesthesia/Blood Transfusion Reactions: No Reported Reaction Past Psychological History: No Psychological Hx Reported Smoking Status: Former smoker Past Alcohol Use History: None Reported Past Drug Use History: None Reported - Past Family History Father Family Medical History: Cancer Additional Family Medical History / Comment(s): Colon cancer. Mother Family Medical History: Diabetes Mellitus, Hypertension Course Vital Signs 03/12/22 03/12/22 03/12/22 09:45 10:26 12:41 Temperature 98.3 F 97.8 F Pulse Rate 105 H 92 112 H Respiratory 20 18 20 Rate Blood Pressure 169/80 167/87 153/98 O2 Sat by Pulse 99 92 L 95 Oximetry Disposition Clinical Impression: CVA (cerebral vascular accident), Afib, Esophageal cancer, Metastatic cancer Disposition: ADMITTED IP TO THIS HOSP Condition: Stable Is patient prescribed a controlled substance at d/c from ED?: No Time of Disposition: 13:31 Decision to Admit Reason: Admit from EC Decision Date: 03/12/22 Decision Time: 13:31
--- NOTE | 2022-03-12 14:12 | US ---
EXAMINATION TYPE: US carotid duplex BILAT DATE OF EXAM: 03/12/2022 COMPARISON: CLINICAL HISTORY: CVA. HTN. Abnormal MRI. TECHNIQUE: Carotid duplex ultrasound examination. Indirect Doppler criteria was utilized. FINDINGS: EXAM MEASUREMENTS: RIGHT: Peak Systolic Velocity (PSV) cm/sec ----- Right CCA: 45.5 ----- Right ICA: 54.9 ----- Right ECA: 91.8 ICA/CCA ratio: 1.2 RIGHT: End Diastole cm/sec ----- Right CCA: 8.5 ----- Right ICA: 23.5 ----- Right ECA: 12.8 LEFT: Peak Systolic Velocity (PSV) cm/sec ----- Left CCA: 70.2 ----- Left ICA: 75.7 ----- Left ECA: 112.9 ICA/CCA ratio: 1.1 LEFT: End Diastole cm/sec ----- Left CCA: 13.1 ----- Left ICA: 16.4 ----- Left ECA: 9.5 VERTEBRALS (direction of flow): Right Vertebral: Antegrade Left Vertebral: Antegrade Rhythm: Arrhythmia CALL CENTER CONSULTANT NOTES: Bilateral bilateral bulbs. No elevated velocities or significant stenosis. Wall thickening. Atheromatous plaquing is present. Significant flow-limiting stenosis velocities are not identified. IMPRESSION: Bilateral carotid bifurcation atheromatous plaquing. No significant flow-limiting stenosis by velocit ies are apparent. Criteria for Assigning % of Stenosis / Diameter reduction (Estimation based on the indirect measurements of the internal carotid artery velocities (ICA PSV). 1. Normal (no stenosis)=ICA PSV < 125 cm/s: ratio < 2.0: ICA EDV<40 cm/s. 2. Less than 50% stenosis=ICA PSV < 125 cm/s: ratio < 2.0: ICA EDV<40 cm/s. 3. 50 to 69% stenosis=ICA PSV of 125 to 230 cm/s: ration 2.0 ? 4.0: ICA EDV 40-100 cm/s. 4. Greater than 70% stenosis to near occlusion= ICA PSV > 230 cm/s: ratio > 4.0: ICA EDV > 100 cm/s. 5. Near occlusion= ICA PSV velocities may be low or undetectable: variable ratio and ICA EDV. 6. Total occlusion=unable to detect flow.
[2022-03-12 16:42] LABS: Glucose,Whole Blood 134 mg/dL (70-110)
[2022-03-12] MEDS ORDERED: FUROSEMIDE 40 MG TAB PO PRN (16:50)
[2022-03-12] MEDS: PANTOPRAZOLE 40 MG/10 ML VIAL IVP SCH (17:53)
[2022-03-12] MEDS: metFORMIN 500 MG TAB PO SCH (17:53)
[2022-03-12 18:51] LABS: Chol/HDL Ratio 4.33 Ratio; LDL Cholesterol,Calculated 89.8 mg/dL (0.0-131.0)
[2022-03-12 20:17] LABS: Glucose,Whole Blood 168 mg/dL (70-110)
[2022-03-12] MEDS: METOPROLOL TARTRATE 25 MG TAB PO SCH (20:39)
--- NOTE | 2022-03-13 00:59 | P.CNNES ---
History of Present Illness Consult date: 03/12/22 Requesting physician: Earline Joshi Reason for Consult: Acute CVA History of Present Illness: Patient is a 71-year-old male with history of hypertension, diabetes, atrial fibrillation, on Xarelto, recent diagnosis of esophageal cancer with metastases to the lungs, underwent thoracentesis on 03/04/2022, for which he stopped taking Xarelto for 3 days. After the procedure, patient was noted to be confused on Tuesday. He was a sacral cyst like "is this of her house" and also states "is this government housing?". They were seen by the primary physician, who initiated an MRI of the brain. This was performed yesterday, which revealed an acute stroke therefore he was recommended to go to the ER. Patient's family has mentioned that patient is getting better. Patient denies any slurred speech, facial droop, any problem with the vision, headache. EKG shows atrial fibrillation. MRI of the brain performed 03/11/2022 revealed acute area of infarct involving the inferior left occipital lobe extending into the posterior medial left parietal now. This involves a portion of the left COMMISSIONING SPECIALIST territory. No midline shift or herniation. No hemorrhage. Moderate generalized cerebral cortical volume loss. No enhancing lesions. I personally reviewed MRI, I agree with the findings. Patient states that he had a lap band surgery 20 years ago. Since then he has some issues with swallowing, but has got worse lately in the past 1-2 months. This prompted further testing and was diagnosed with esophageal cancer. Patient has not been started on treatment for esophageal cancer. Patient has hypertension, diabetes, smoked 1 pack per day for 20-30 years, quit 40 years ago. Denies any alcohol use. Patient does have atrial fibrillation, on Xarelto. Review of Systems Constitutional: Denies chills, Denies fever Eyes: denies blurred vision, denies pain Ears: deny: decreased hearing, ear discharge Ears, nose, mouth and throat: Denies headache, Denies sore throat Cardiovascular: Denies chest pain, Denies shortness of breath Respiratory: Denies cough Gastrointestinal: Denies abdominal pain, Denies diarrhea, Denies nausea, Denies vomiting Musculoskeletal: Denies myalgias Integumentary: Denies pruritus, Denies rash Neurological: Reports as per HPI Psychiatric: Denies anxiety, Denies depression Past Medical History Past Medical History: Atrial Fibrillation, Cancer, Hypertension, Prostate Disorder, Sleep Apnea/CPAP/BIPAP Additional Past Medical History / Comment(s): HX OF BLADDER CA, HX BLADDER STONES, RECURRENT UTI, CPAP @ HS History of Any Multi-Drug Resistant Organisms: None Reported Past Surgical History: Prostate Surgery Additional Past Surgical History / Comment(s): BLADDER STONES ,LAP BAND, COLONOSCOPY, LEFT KIDNEY SURGERY Past Anesthesia/Blood Transfusion Reactions: No Reported Reaction Past Psychological History: No Psychological Hx Reported Smoking Status: Former smoker Past Alcohol Use History: None Reported Past Drug Use History: None Reported - Past Family History Father Family Medical History: Cancer Additional Family Medical History / Comment(s): Colon cancer. Mother Family Medical History: Diabetes Mellitus, Hypertension Medications and Allergies Home Medications Medication Instructions Recorded Confirmed Type Multivitamin [Men's Multi-Vitamin] 1 tab PO DAILY 07/04/14 03/12/22 History Metoprolol Tartrate [Lopressor] 25 mg PO BID 10/11/17 03/12/22 History Rivaroxaban [Xarelto] 20 mg PO DAILY 10/11/17 03/12/22 History metFORMIN HCL [Glucophage] 500 mg PO BID 10/11/17 03/12/22 History Glimepiride [Amaryl] 2 mg PO AC-BRKFST 01/15/20 03/12/22 History Losartan Potassium 100 mg PO DAILY 01/15/20 03/12/22 History Pioglitazone [Actos] 15 mg PO DAILY 01/15/20 03/12/22 History amLODIPine [Norvasc] 5 mg PO DAILY 01/15/20 03/12/22 History Potassium Chloride [Klor-Con 20 20 meq PO DAILY 02/10/22 03/12/22 History Packets] Atorvastatin [Lipitor] 10 mg PO DAILY 03/12/22 03/12/22 History Furosemide [Lasix] 40 mg PO DAILY PRN 03/12/22 03/12/22 History Pantoprazole Sodium [Protonix] 40 mg PO DAILY 03/12/22 03/12/22 History hydroCHLOROthiazide [Hydrodiuril] 12.5 mg PO DAILY 03/12/22 03/12/22 History Allergies Allergy/AdvReac Type Severity Reaction Status Date / Time nitrofurantoin Allergy Rash/Hives Verified 03/12/22 13:51 [From Macrobid] nitrofurantoin Allergy Rash/Hives/ Verified 03/12/22 13:51 macrocrystalline Swelling [From Macrobid] Penicillins Allergy Unknown Verified 03/12/22 13:51 Childhood Physical Examination - Vital Signs Vital Signs: Vital Signs Temp Pulse Pulse Resp BP BP Pulse Ox 03/12/22 20:00 97.4 F L 100 19 164/82 97 03/12/22 16:00 98 F 103 H 18 169/83 95 03/12/22 14:50 98.2 F 100 19 155/92 96 03/12/22 12:41 97.8 F 112 H 20 153/98 95 03/12/22 10:26 92 18 167/87 92 L 03/12/22 09:45 98.3 F 105 H 20 169/80 99 Intake and Output 03/12/22 03/12/22 03/13/22 14:59 22:59 06:59 Intake Total 118 Balance 118 Intake: Oral 118 Other: Weight 136.078 kg Patient is an elderly male, in no acute distress. Patient is alert awake oriented to time place and person. Speech and language functions are normal. Patient can name and repeat very well. No aphasia or dysarthria. Attention, concentration and fund of knowledge is adequate. On cranial nerve examination, pupils are equal, round and reacting to light, visual melo are full on confrontation, with no neglect on double simultaneous stimulation. Extraocular muscles are intact with no nystagmus. Face is symmetric, tongue protrudes to the midline. Palatal elevation and sensation normal, hearing and shoulder shrug normal, facial sensation normal. On muscle strength testing, there is no pronator drift and the strength is normal in arms and legs distally and proximally, except hip flexion, which is 4+ bilaterally. Deep tendon reflexes are symmetric 1 at the biceps, 1 brachioradialis, 2 at the knees, 1 ankles and plantars downgoing bilaterally. Sensory to touch is equal with no neglect on double simultaneous stimulation. Cerebellar function showed no ataxia for [id number] testing. No dysdiadochokinesia. No ataxia for cjer-un-[id number] testing on either side. Tone and bulk of muscles normal. Gait deferred.. On general examination, there is no carotid bruit or murmur, S1-S2 audible. Chest is clear on consultation. Abdomen is soft nontender. No organomegaly, bowel sounds present. Peripheral pulses are present. No edema. Results - Laboratory Findings Abnormal Lab Findings: Abnormal Labs 03/12/22 03/12/22 03/12/22 12:39 12:39 16:40 POC Glucose (mg/dL) 134 H Hemoglobin A1c 7.4 H Triglycerides 170.00 H HDL Cholesterol 37.20 L 03/12/22 20:15 POC Glucose (mg/dL) 168 H Hemoglobin A1c Triglycerides HDL Cholesterol Assessment and Plan Assessment: * Acute ischemic stroke involving left occipital lobe extending into the posterior medial left parietal lobe. Stroke likely happened while patient was off Xarelto for thoracentesis. Patient's NIH stroke scale is 0. * Metastatic esophageal cancer * Hypertension * Diabetes * Obesity * History of left back surgery * Sleep apnea * X Tobacco use Plan: * Carotid Doppler was performed, which revealed bilateral carotid atheromatous plaquing. No significant flow limiting stenosis. * Hemoglobin A1c 7.4. Suggest optimize control of diabetes to target A1c <7.0 * Lipid panel with cholesterol 161, LDL 89, HDL 37 and triglycerides 170. Continue Lipitor 10 mg daily. * 2-D echo is pending. If not able to be performed on Tuesday, then may consider having it done as an outpatient. * Continue Xarelto 20 mg daily. * Neurologically clear for discharge. Dr. Diaz will be available for any neurological concerns. Thank you for the consult.
--- NOTE | 2022-03-13 04:33 | HP ---
HISTORY AND PHYSICAL CHIEF COMPLAINT: Difficulty in speaking and acute stroke. 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 Venegas. The patient had some thoracocentesis a few days ago. Subsequently, the noticed that the patient had difficulty in speaking and MRI was ordered by Dr. Venegas and the patient was called yesterday because of the abnormal MRI report and the patient came to [facility] and admitted for further evaluation and treatment. The MRI of the brain showed acute infarct, including the inferior left occipital lobe extending to the posteromedial left parietal lobe, possibly indicating a left ENVIRONMENTAL RESOURCE SPECIALIST territory and the patient was admitted for further evaluation and treatment. The patient is apparently not a candidate for tPA. There is no history of fever, rigors, or chills at this time. PAST MEDICAL HISTORY: Reviewed, include atrial fibrillation, history of hypertension, and prostate disorder. HOME MEDICATIONS: Reviewed include HydroDIURIL, dose and rest of medication noted. ALLERGIES: Reviewed include Macrobid. Rest of the allergies noted. FAMILY HISTORY: History of colon cancer. SOCIAL HISTORY: History of smoking. REVIEW OF SYSTEMS: Fourteen-point review is negative as mentioned earlier. PHYSICAL EXAMINATION: VITAL SIGNS: Pulse is 101, blood pressure is 116/83, respirations 19. HEENT: Conjunctivae normal. NECK: No jugular venous distention. CARDIOVASCULAR: S1, S2 regular. RESPIRATION: Breath sounds diminished at the bases. ABDOMEN: Soft, obese, and nontender. No mass palpable. LEGS: No edema. No swelling. NERVOUS SYSTEM: Higher functions as mentioned earlier. Moves all 4 limbs. No focal motor or sensory deficit. Some minimal speech abnormality noted. SKIN: No ulcers. JOINTS: No active arthropathy. LABS: Glucose 134. ASSESSMENT: 1. Acute stroke involving the inferior left occipital lobe extending to the posteromedial left parietal lobe. 2. History of recent thoracocentesis. 3. History of esophageal carcinoma with metastasis. 4. History of atrial fibrillation. 5. Multiple medical issues. RECOMMENDATIONS: This is a 71-year-old gentleman, who presented with multiple complex medical issues. At this time, I will continue the current medications. Resume the home medications. Neurology evaluation. Also recommend Hematology/Oncology evaluation also. Otherwise, overall prognosis guarded because of multiple complex medical issues. Further recommendations to follow. The patient also started on Xarelto at this time. See orders for details. Discussed the patient's home medication, also will be continued after evaluation. PT, OT also will be evaluated. GRISEL / SHARON: [id number] / MTDChristiana
[2022-03-13 06:12] LABS: Glucose,Whole Blood 142 mg/dL (70-110)
[2022-03-13] MEDS: GLIMEPIRIDE 2 MG TAB PO SCH (06:58)
[2022-03-13] MEDS: metFORMIN 500 MG TAB PO SCH ×2 (06:58→16:27)
[2022-03-13] MEDS ORDERED: PANTOPRAZOLE 40 MG TABLET PO SCH (07:30)
[2022-03-13] MEDS: LOSARTAN 50 MG TAB PO SCH (07:46)
[2022-03-13] MEDS: POTASSIUM CHLORIDE ER 20 MEQ TAB.ER PO SCH (07:47)
[2022-03-13] MEDS: METOPROLOL TARTRATE 25 MG TAB PO SCH ×2 (07:47→20:07)
[2022-03-13] MEDS: MULTIVITAMINS, THERA 1 EACH TAB PO SCH (07:47)
[2022-03-13] MEDS: hydroCHLOROthiazide 25 MG TAB PO SCH (07:47)
[2022-03-13] MEDS: ATORVASTATIN 10 MG TAB PO SCH (07:48)
[2022-03-13] MEDS: RIVAROXABAN 20 MG TAB PO SCH (07:48)
[2022-03-13] MEDS: amLODIPine 5 MG TAB PO SCH (07:48)
[2022-03-13] MEDS: PANTOPRAZOLE 40 MG/10 ML VIAL IVP SCH (07:49)
[2022-03-13] MEDS: PIOGLITAZONE 15 MG TAB PO SCH (07:49)
[2022-03-13 08:55] LABS: Basophils # (A) 0.1 k/uL (0-0.2); Basophils % (A) 1 %; Eosinophils # (A) 0.2 k/uL (0-0.7); Eosinophils % (A) 1 %; HCT 45.6 % (39.0-53.0); HGB 14.6 gm/dL (13.0-17.5); Lymphocytes # (A) 1.9 k/uL (1.0-4.8); Lymphocytes % (A) 17 %; MCHC 31.9 g/dL (31.0-37.0); MCV 84.6 fL (80.0-100.0); Monocytes # (A) 0.6 k/uL (0-1.0); Monocytes % (A) 6 %; Neutrophils # (A) 8.2 k/uL (1.3-7.7); Neutrophils % (A) 74 %; Platelet Count 269 k/uL (150-450); RBC 5.39 m/uL (4.30-5.90); RDW 14.9 % (11.5-15.5); WBC 11.1 k/uL (3.8-10.6)
[2022-03-13] MEDS ORDERED: ATORVASTATIN 10 MG TAB PO SCH (09:00)
[2022-03-13 11:41] LABS: Chol/HDL Ratio 4.25 Ratio; LDL Cholesterol,Calculated 87.6 mg/dL (0.0-131.0)
[2022-03-13 11:47] LABS: Glucose,Whole Blood 114 mg/dL (70-110)
--- NOTE | 2022-03-13 13:20 | P.CRDCN ---
History of Present Illness Consult date: 03/13/22 History of present illness: History of Present Illness: The patient is a 71-year-old male with known history of chronic persistent atrial fibrillation, history of hypertension, hyperlipidemia with recently diagnosed esophageal cancer with malignant pleural effusion who presented with change in mental status. He recently underwent thoracentesis and was off anticoagulation for 3 days and on the following day he was confused. He underwent an MRI as an outpatient that showed evidence of a stroke and the patient was referred to the emergency room and subsequently admitted. He has been followed by Dr. Vega from the cardiac standpoint, he has a history of atrial fibrillation and has been anticoagulated. He has no history of malignant arrhythmia in his left ventricle systolic function by echocardiography in September 2021 was normal with mild mitral and mild to moderate tricuspid regurgitation. The patient has been having difficulty swallowing and weight loss, subsequently underwent evaluation by Dr. Damon and was found to have the evidence of esophageal mass. He is undergoing further workup and has been seen in Dr. Venegas. No treatment was started in that regard. He had no focal weakness with the presentation and no speech disturbance. He has a history of peripheral edema that has been improving. He has no clear PND nor orthopnea. He has a history of hypertension, hyperlipidemia and diabetes. Medications: Hydrochlorothiazide 12-1/2 mg daily, Actos 15 mg daily, Lopressor 25 mg twice a day, Glucophage 500 mg twice a day, losartan 100 mg daily, Lipitor 10 mg daily, Norvasc 5 mg a day, glyburide, potassium,Xarelto 20 mg daily Review of Systems: Respiratory: He has chronic dyspnea on exertion, stable GI: He has difficulty swallowing and he has been losing weight. No history of peptic ulcer disease. No recent GI bleed. : No hematuria or dysuria. Nervous System: No prior history of stroke until this time Physical Examination: 71-year-old male, alert and mildly confused, cannot recall all the events,Blood pressure 153/90, Heart rate 90 Head: Normocephalic. Eyes: Sclerae nonicteric. Neck: Good carotid upstroke, no bruit, no jugular venous distention. Lungs: Clear to auscultation. Heart: Irregular rate and rhythm, S1-S2, no S3, no rub. Systolic ejection murmur. Abdomen: Soft nontender, positive bowel sounds no organomegaly. Extremities: +2 edema, intact distal pulses.] Labs: Hemoglobin 14.6, cholesterol 152, LDL 87. EKG: Atrial fibrillation with right bundle branch block Impression: 1. Evidence of CVA most likely secondary to the interruption of anticoagulation 2. Metastatic esophageal cancer with malignant pleural effusion 3. History of hypertension 4. History of diabetes 5. History of hyperlipidemia 6. Difficulty swallowing and weight loss related to the malignancy Plan: 1. Continue anticoagulation 2. Continue antihypertensive regimen 3. Obtain an echocardiogram with Doppler 4. Depending on his blood pressure further adjustment will be made 5. If the patient is not able to swallow he may be a candidate for a PEG tube 6. Findings discussed with the patient and his family, thank you for this consult we will follow with you. Past Medical History Past Medical History: Atrial Fibrillation, Cancer, Hypertension, Prostate Disorder, Sleep Apnea/CPAP/BIPAP Additional Past Medical History / Comment(s): HX OF BLADDER CA, HX BLADDER STONES, RECURRENT UTI, CPAP @ HS History of Any Multi-Drug Resistant Organisms: None Reported Past Surgical History: Prostate Surgery Additional Past Surgical History / Comment(s): BLADDER STONES ,LAP BAND, COLONOSCOPY, LEFT KIDNEY SURGERY Past Anesthesia/Blood Transfusion Reactions: No Reported Reaction Past Psychological History: No Psychological Hx Reported Smoking Status: Former smoker Past Alcohol Use History: None Reported Past Drug Use History: None Reported - Past Family History Father Family Medical History: Cancer Additional Family Medical History / Comment(s): Colon cancer. Mother Family Medical History: Diabetes Mellitus, Hypertension Medications and Allergies Home Medications Medication Instructions Recorded Confirmed Type Multivitamin [Men's Multi-Vitamin] 1 tab PO DAILY 07/04/14 03/12/22 History Metoprolol Tartrate [Lopressor] 25 mg PO BID 10/11/17 03/12/22 History Rivaroxaban [Xarelto] 20 mg PO DAILY 10/11/17 03/12/22 History metFORMIN HCL [Glucophage] 500 mg PO BID 10/11/17 03/12/22 History Glimepiride [Amaryl] 2 mg PO AC-BRKFST 01/15/20 03/12/22 History Losartan Potassium 100 mg PO DAILY 01/15/20 03/12/22 History Pioglitazone [Actos] 15 mg PO DAILY 01/15/20 03/12/22 History amLODIPine [Norvasc] 5 mg PO DAILY 01/15/20 03/12/22 History Potassium Chloride [Klor-Con 20 20 meq PO DAILY 02/10/22 03/12/22 History Packets] Atorvastatin [Lipitor] 10 mg PO DAILY 03/12/22 03/12/22 History Furosemide [Lasix] 40 mg PO DAILY PRN 03/12/22 03/12/22 History Pantoprazole Sodium [Protonix] 40 mg PO DAILY 03/12/22 03/12/22 History hydroCHLOROthiazide [Hydrodiuril] 12.5 mg PO DAILY 03/12/22 03/12/22 History Allergies Allergy/AdvReac Type Severity Reaction Status Date / Time nitrofurantoin Allergy Rash/Hives Verified 03/12/22 13:51 [From Macrobid] nitrofurantoin Allergy Rash/Hives/ Verified 03/12/22 13:51 macrocrystalline Swelling [From Macrobid] Penicillins Allergy Unknown Verified 03/12/22 13:51 Childhood Physical Exam Vitals: Vital Signs Temp Pulse Pulse Resp BP BP Pulse Ox 03/13/22 11:18 92 17 153/91 93 L 03/13/22 09:51 164/98 03/13/22 07:50 98.6 F 110 H 15 179/110 94 L 03/13/22 04:00 17 162/78 96 03/13/22 01:59 97 19 03/13/22 00:00 97.5 F L 97 17 168/95 96 03/12/22 20:00 97.4 F L 100 19 164/82 97 03/12/22 16:00 98 F 103 H 18 169/83 95 03/12/22 14:50 98.2 F 100 19 155/92 96 Intake and Output 03/12/22 03/13/22 03/13/22 22:59 06:59 14:59 Intake Total 118 300 Balance 118 300 Intake: Oral 118 300 Other: Voiding Method Toilet Toilet # Voids 2 1 Results 03/13/22 07:47 Lipids 03/12/22 03/13/22 Range/Units 12:39 07:47 Triglycerides 170.00 H 143.00 (0.00-149.00) mg/dL Cholesterol 161.00 152.00 (0.00-200.00) mg/dL HDL Cholesterol 37.20 L 35.80 L (40.00-60.00) mg/dL Cholesterol/HDL Ratio 4.33 4.25 Ratio CBC 03/13/22 Range/Units 07:47 WBC 11.1 H (3.8-10.6) k/uL RBC 5.39 (4.30-5.90) m/uL Hgb 14.6 (13.0-17.5) gm/dL Hct 45.6 (39.0-53.0) % Plt Count 269 (150-450) k/uL Current Medications Generic Name Dose Route Start Last Admin Trade Name Freq PRN Reason Stop Dose Admin Amlodipine Besylate 5 mg 03/13/22 09:00 03/13/22 07:48 Amlodipine 5 Mg Tab PO 5 mg DAILY GENE Administration Atorvastatin Calcium 10 mg 03/13/22 09:00 03/13/22 07:48 Atorvastatin 10 Mg Tab PO 10 mg DAILY GENE Administration Furosemide 40 mg 03/12/22 16:50 Furosemide 40 Mg Tab PO DAILY PRN fluid retention Glimepiride 2 mg 03/13/22 07:30 03/13/22 06:58 Glimepiride 2 Mg Tab PO 2 mg AC-BRKFST GENE Administration Hydrochlorothiazide 6.25 mg 03/13/22 09:00 03/13/22 07:47 Hydrochlorothiazide 25 Mg Tab PO 6.25 mg DAILY GENE Administration Losartan Potassium 100 mg 03/13/22 09:00 03/13/22 07:46 Losartan 50 Mg Tab PO 100 mg DAILY GENE Administration Metformin HCl 500 mg 03/12/22 17:30 03/13/22 06:58 Metformin 500 Mg Tab PO 500 mg BID-W/MEALS GENE Administration Metoprolol Tartrate 25 mg 03/12/22 21:00 03/13/22 07:47 Metoprolol Tartrate 25 Mg Tab PO 25 mg BID GENE Administration Multivitamins 1 each 03/13/22 09:00 03/13/22 07:47 Multivitamins, Thera 1 Each Tab PO 1 each DAILY GENE Administration Pantoprazole Sodium 40 mg 03/12/22 17:45 03/13/22 07:49 Pantoprazole 40 Mg/10 Ml Vial IVP 40 mg DAILY GENE Administration Pioglitazone HCl 15 mg 03/13/22 09:00 03/13/22 07:49 Pioglitazone 15 Mg Tab PO 15 mg DAILY GENE Administration Potassium Chloride 20 meq 03/13/22 09:00 03/13/22 07:47 Potassium Chloride Er 20 Meq Tab.Er PO 20 meq DAILY GENE Administration Rivaroxaban 20 mg 03/13/22 09:00 03/13/22 07:48 Rivaroxaban 20 Mg Tab PO 20 mg DAILY GENE Administration Protocol Intake and Output 03/12/22 03/13/22 03/13/22 22:59 06:59 14:59 Intake Total 118 300 Balance 118 300 Intake: Oral 118 300 Other: Voiding Method Toilet Toilet # Voids 2 1 03/13/22 07:47
--- NOTE | 2022-03-13 14:02 | P.CONS ---
History of Present Illness - Reason for Consult Consult date: 03/13/22 Metastatic esophageal adenocarcinoma - Chief Complaint Confusion - History of Present Illness Ms. Michele is a 71-year-old gentleman with a past medical history significant for recently diagnosed metastatic esophageal adenocarcinoma with metastases to the lungs and right pleural effusion who presents with infarction of the left occipital and parietal lobe. She established care in clinic on 03/02/2022. At that time, she was noted to have intermittent confusion. Due to the confusion, a brain MRI was ordered and performed on 03/11/2022. This revealed no evidence of intracranial metastasis, but did note area of acute infarct involving the inferior left occipital lobe extending into the posterior medial left parietal lobe. This is felt to be involving a portion of the left FLIGHT COMMUNICATIONS SPECIALIST territory with the infarct being greater than 6 hours in duration. There is no midline shift or herniation. Based on these findings, she was advised to present to the ED for additional management recommendations. On presentation, she was afebrile with systolic blood pressures ranging from the 160s to the 170s and diastolic pressures ranging from the 80s to 110s. Carotid Doppler was performed which revealed no significant flow-limiting stenosis in either carotid artery bilaterally. Neurology was consulted and attributed acute stroke to stopping Xarelto therapy for atrial fibrillation for thoracentesis performed on 03/04/2022. It was recommended she continue her Lipitor for hyperlipidemia as well as her Xarelto 20 mg daily. 2D echo has been ordered inpatient per neurology, but could be done outpatient. No acute interventions were recommended from a neurology perspective. Currently, he feels improved with regards to confusion and is oriented to time, place, and self. He did previously have trouble remembering things like passwords to the computer and trouble comprehending reading, but those are also improving per Mr. Michele and his . He denies any focal neurologic deficits currently. He is swallowing liquids and pured foods, but does note a 50 to 60 pound weight loss over the past 2 months. Review of Systems 14 point review of systems conducted with pertinent positive negatives as noted per HPI Past Medical History Past Medical History: Atrial Fibrillation, Cancer, Hypertension, Prostate Disorder, Sleep Apnea/CPAP/BIPAP Additional Past Medical History / Comment(s): HX OF BLADDER CA, HX BLADDER STONES, RECURRENT UTI, CPAP @ HS History of Any Multi-Drug Resistant Organisms: None Reported Past Surgical History: Prostate Surgery Additional Past Surgical History / Comment(s): BLADDER STONES ,LAP BAND, COLONOSCOPY, LEFT KIDNEY SURGERY Past Anesthesia/Blood Transfusion Reactions: No Reported Reaction Past Psychological History: No Psychological Hx Reported Smoking Status: Former smoker Past Alcohol Use History: None Reported Past Drug Use History: None Reported - Past Family History Father Family Medical History: Cancer Additional Family Medical History / Comment(s): Colon cancer. Mother Family Medical History: Diabetes Mellitus, Hypertension Medications and Allergies Home Medications Medication Instructions Recorded Confirmed Type Multivitamin [Men's Multi-Vitamin] 1 tab PO DAILY 07/04/14 03/12/22 History Metoprolol Tartrate [Lopressor] 25 mg PO BID 10/11/17 03/12/22 History Rivaroxaban [Xarelto] 20 mg PO DAILY 10/11/17 03/12/22 History metFORMIN HCL [Glucophage] 500 mg PO BID 10/11/17 03/12/22 History Glimepiride [Amaryl] 2 mg PO AC-BRKFST 01/15/20 03/12/22 History Losartan Potassium 100 mg PO DAILY 01/15/20 03/12/22 History Pioglitazone [Actos] 15 mg PO DAILY 01/15/20 03/12/22 History amLODIPine [Norvasc] 5 mg PO DAILY 01/15/20 03/12/22 History Potassium Chloride [Klor-Con 20 20 meq PO DAILY 02/10/22 03/12/22 History Packets] Atorvastatin [Lipitor] 10 mg PO DAILY 03/12/22 03/12/22 History Furosemide [Lasix] 40 mg PO DAILY PRN 03/12/22 03/12/22 History Pantoprazole Sodium [Protonix] 40 mg PO DAILY 03/12/22 03/12/22 History hydroCHLOROthiazide [Hydrodiuril] 12.5 mg PO DAILY 03/12/22 03/12/22 History Allergies Allergy/AdvReac Type Severity Reaction Status Date / Time nitrofurantoin Allergy Rash/Hives Verified 03/12/22 13:51 [From Macrobid] nitrofurantoin Allergy Rash/Hives/ Verified 03/12/22 13:51 macrocrystalline Swelling [From Macrobid] Penicillins Allergy Unknown Verified 03/12/22 13:51 Childhood Physical Exam Vitals: Vital Signs Temp Pulse Pulse Resp BP BP Pulse Ox 03/13/22 07:50 98.6 F 110 H 15 179/110 94 L 03/13/22 04:00 17 162/78 96 03/13/22 01:59 97 19 03/13/22 00:00 97.5 F L 97 17 168/95 96 03/12/22 20:00 97.4 F L 100 19 164/82 97 03/12/22 16:00 98 F 103 H 18 169/83 95 03/12/22 14:50 98.2 F 100 19 155/92 96 03/12/22 12:41 97.8 F 112 H 20 153/98 95 03/12/22 10:26 92 18 167/87 92 L 03/12/22 09:45 98.3 F 105 H 20 169/80 99 Intake and Output 03/12/22 03/13/22 03/13/22 22:59 06:59 14:59 Intake Total 118 300 Balance 118 300 Intake: Oral 118 300 Other: Voiding Method Toilet # Voids 2 - Constitutional General appearance: no acute distress - EENT Eyes: EOMI - Respiratory Respiratory: bilateral: CTA - Cardiovascular Rhythm: regular - Gastrointestinal General gastrointestinal: no distended, normal bowel sounds, soft, no tenderness - Integumentary Integumentary: no rash - Neurologic Neurologic: CNII-XII intact Results CBC & Chem 7: 03/13/22 07:47 Labs: Abnormal Lab Results - Last 24 Hours (Table) 03/12/22 03/12/22 03/12/22 Range/Units 12:39 12:39 16:40 WBC (3.8-10.6) k/uL Neutrophils # (1.3-7.7) k/uL POC Glucose (mg/dL) 134 H (70-110) mg/dL Hemoglobin A1c 7.4 H (0.0-6.0) % Triglycerides 170.00 H (0.00-149.00) mg/dL HDL Cholesterol 37.20 L (40.00-60.00) mg/dL 03/12/22 03/13/22 03/13/22 Range/Units 20:15 06:11 07:47 WBC 11.1 H (3.8-10.6) k/uL Neutrophils # 8.2 H (1.3-7.7) k/uL POC Glucose (mg/dL) 168 H 142 H (70-110) mg/dL Hemoglobin A1c (0.0-6.0) % Triglycerides (0.00-149.00) mg/dL HDL Cholesterol (40.00-60.00) mg/dL MRI - head: report reviewed Assessment and Plan (1) CVA (cerebral vascular accident) Current Visit: Yes Status: Acute Code(s): I63.9 - CEREBRAL INFARCTION, UNSPECIFIED SNOMED Code(s): 594110135 (2) Esophageal cancer Current Visit: Yes Status: Acute Code(s): C15.9 - MALIGNANT NEOPLASM OF ESOPHAGUS, UNSPECIFIED SNOMED Code(s): 404700092 Plan: #CVA - MRI brain performed on 03/11/2022 due to increased confusion noted acute infarct in the left parietal/occipital lobe regions with no evidence of intracranial metastases - this has been attributed to cessation of Xarelto for diagnostic/therapeutic thoracentesis on 03/05/2022. Per at bedside, confusion began shortly after the thoracentesis - he has no focal neurologic deficits currently and is slowly returning to his baseline mental status - per neurology no acute interventions are required at this time besides resumption of Xarelto - continue to follow any additional recommendations per neurology, appreciate their assistance #Stage IV esophageal cancer - noted to have 6 cm distal esophageal mass consistent with poor differentiated adenocarcinoma along with large right pleural effusion on PET/CT - thoracentesis on 03/05/2022 noted positive cytology for adenocarcinoma - per Dr. Mani Venegas, NGS, microinstability status, PD-L1, and circulating tumor DNA has been sent - he has follow-up on 03/17/2022 at 4:15 PM to review results and formulate treatment plan - depending on the plan, he may need PEG tube given his significant weight loss. This can be arranged in the outpatient setting - from an oncologic perspective, no further work-up or management is required inpatient at this time
--- NOTE | 2022-03-13 15:43 | CA ---
Transthoracic Echo Report Name: Izabela Michele Age: 71 Gender: M : 1950 Exam Date: 03/13/2022 13:53 Exam Location: [facility] Ht (in): 72 Wt (lb): 300 Ordering Physician: Liu Medina MD Attending/Referring Phys: Host/Hostess Ground Mira Lawler RDCS Procedure CPT: Indications: stroke Cardiac Hx: Technical Quality: Technically difficult study Contrast 1: Lumason Total Dose (mL): 4 Contrast 2: Total Dose (mL): MEASUREMENTS (Male / Female) Normal Values 2D ECHO LV Diastolic Diameter PLAX 4.3 cm 4.2 - 5.9 / 3.9 - 5.3 cm LV Systolic Diameter PLAX 2.8 cm IVS Diastolic Thickness 1.7 cm 0.6 - 1.0 / 0.6 - 0.9 cm LVPW Diastolic Thickness 1.5 cm 0.6 - 1.0 / 0.6 - 0.9 cm LV Relative Wall Thickness 0.7 RV Internal Dim ED PLAX 3.4 cm LA Volume 94.8 cm??? 18 - 58 / 22 - 52 cm??? M-MODE Aortic Root Diameter MM 3.6 cm LA Systolic Diameter MM 4.9 cm LA Ao Ratio MM 1.4 AV Cusp Separation MM 2.1 cm DOPPLER AV Peak Velocity 175.1 cm/s AV Peak Gradient 12.3 mmHg AV Mean Velocity 108.7 cm/s AV Mean Gradient 5.3 mmHg AV Velocity Time Integral 24.8 cm LVOT Peak Velocity 88.3 cm/s LVOT Peak Gradient 3.1 mmHg TR Peak Velocity 173.2 cm/s TR Peak Gradient 12.0 mmHg Right Ventricular Systolic Press 16.9 mmHg FINDINGS Left Ventricle Moderately increased left ventricular wall thickness. Normal left ventricular systolic function with no obvious regional wall motion abnormalities. Left ventricular cavity size normal. Left ventricular ejection fraction is estimated at 55-60 %. Right Ventricle Mild right ventricular dilatation. Right ventricular systolic pressure within normal limits. Right Atrium Normal right atrial size. Left Atrium Severely increased left atrial volume. Mildly increased left atrial area. Mitral Valve Structurally normal mitral valve. Mitral valve thickened. Mild mitral annular calcification. Mild mitral regurgitation. Aortic Valve Aortic sclerosis with mild aortic regurgitation Tricuspid Valve Mild tricuspid regurgitation.structurally normal tricuspid valve. Pulmonic Valve Trace pulmonic regurgitation.pulmonic valve not well visualized. Pericardium No pericardial effusion. Aorta Normal size aortic root and proximal ascending aorta. CONCLUSIONS Lumason ECHO contrast used for improved visualization of the endocardial borders (inadequate visualization of two or more contiguous segments). 1. Normal left ventricle size and systolic function 2. Mild mitral and aortic regurgitation 3. Mild tricuspid regurgitation with normal pulmonary pressure Previewed by: Dr. Camryn Cabrera MD (Electronically Signed) Final Date: 13 March 2022 15:42
[2022-03-13 16:45] LABS: Glucose,Whole Blood 122 mg/dL (70-110)
[2022-03-13 20:04] LABS: Glucose,Whole Blood 137 mg/dL (70-110)
--- NOTE | 2022-03-13 20:52 | PN ---
PROGRESS NOTE DATE OF SERVICE: 03/13/2022 SUBJECTIVE: This is a 71-year-old gentleman, who was admitted with acute stroke involving the inferior left occipital lobe after an episode of paracentesis, possibly secondary to cessation of anticoagulation. He is being closely monitored. No chest pain. No palpitation. The patient is much more coherent. OBJECTIVE: VITAL SIGNS: Pulse 107, blood pressure 156/78. CHEST: Clear to auscultation. CARDIOVASCULAR: S1 and S2. ABDOMEN: Soft. NERVOUS SYSTEM: No focal deficits. LABORATORY DATA: Reviewed. ASSESSMENT: 1. Acute stroke involving the inferior left occipital lobe extending to the posteromedial left parietal lobe. 2. History of recent thoracocentesis and anticoagulation interruption. 3. History of metastatic esophageal adenocarcinoma. 4. History of atrial fibrillation. 5. Multiple medical issues. RECOMMENDATIONS: Recommend to continue current medications and symptomatic treatment. Otherwise, recommend to repeat labs and continue the anticoagulation. Prognosis is guarded because of multiple complex medical issues. Further recommendations to follow. MMODL / IJN: [id number] /
[2022-03-13 22:31] VITALS: TEMP 98.2
[2022-03-14 06:13] LABS: Glucose,Whole Blood 128 mg/dL (70-110)
[2022-03-14] MEDS: metFORMIN 500 MG TAB PO SCH (06:35)
[2022-03-14] MEDS: GLIMEPIRIDE 2 MG TAB PO SCH (06:35)
[2022-03-14 08:13] LABS: Basophils # (A) 0.1 k/uL (0-0.2); Basophils % (A) 1 %; Eosinophils # (A) 0.2 k/uL (0-0.7); Eosinophils % (A) 2 %; HCT 46.3 % (39.0-53.0); HGB 14.5 gm/dL (13.0-17.5); Lymphocytes # (A) 2.6 k/uL (1.0-4.8); Lymphocytes % (A) 22 %; MCH 26.5 pg (25.0-35.0); MCHC 31.4 g/dL (31.0-37.0); MCV 84.7 fL (80.0-100.0); Mean Platelet Volume 8.3; Monocytes # (A) 0.6 k/uL (0-1.0); Monocytes % (A) 5 %; Neutrophils # (A) 8.2 k/uL (1.3-7.7); Neutrophils % (A) 70 %; Platelet Count 289 k/uL (150-450); RBC 5.47 m/uL (4.30-5.90); RDW 14.5 % (11.5-15.5); WBC 11.8 k/uL (3.8-10.6)
[2022-03-14 08:28] LABS: African American GFR (CKD) >90 (>60 ml/min/1.73 sqM); Anion Gap 10 mmol/L; Blood Urea Nitrogen 16 mg/dL (9-20); Calcium 8.7 mg/dL (8.4-10.2); Carbon Dioxide 25 mmol/L (22-30); Chloride 104 mmol/L (98-107); Glucose 202 mg/dL (74-99); Non-African American GFR(CKD) 85 (>60 ml/min/1.73 sqM); Potassium 3.8 mmol/L (3.5-5.1); Sodium 139 mmol/L (137-145)
[2022-03-14 09:04] VITALS: RESP 18
[2022-03-14] MEDS: MULTIVITAMINS, THERA 1 EACH TAB PO SCH (09:05)
[2022-03-14] MEDS: hydroCHLOROthiazide 25 MG TAB PO SCH (09:05)
[2022-03-14] MEDS: ATORVASTATIN 10 MG TAB PO SCH (09:05)
[2022-03-14] MEDS: PIOGLITAZONE 15 MG TAB PO SCH (09:05)
[2022-03-14] MEDS: amLODIPine 5 MG TAB PO SCH (09:05)
[2022-03-14] MEDS: LOSARTAN 50 MG TAB PO SCH (09:05)
[2022-03-14] MEDS: POTASSIUM CHLORIDE ER 20 MEQ TAB.ER PO SCH (09:05)
[2022-03-14] MEDS: RIVAROXABAN 20 MG TAB PO SCH (09:06)
[2022-03-14] MEDS: PANTOPRAZOLE 40 MG/10 ML VIAL IVP SCH (09:06)
[2022-03-14] MEDS: METOPROLOL TARTRATE 25 MG TAB PO SCH (09:06)
[2022-03-14 11:48] LABS: Glucose,Whole Blood 120 mg/dL (70-110)
--- NOTE | 2022-03-14 12:13 | P.PN ---
Subjective Progress Note Date: 03/14/22 PROGRESS NOTE The patient is a 71-year-old male with known history of chronic persistent atrial fibrillation, history of hypertension, hyperlipidemia with recently diagnosed esophageal cancer with malignant pleural effusion who presented with change in mental status. He recently underwent thoracentesis and was off anticoagulation for 3 days and on the following day he was confused. He underwent an MRI as an outpatient that showed evidence of a stroke and the patient was referred to the emergency room and subsequently admitted. He has been followed by Dr. Vega from the cardiac standpoint, he has a history of atrial fibrillation and has been anticoagulated. He has no history of malignant arrhythmia in his left ventricle systolic function by echocardiography in September 2021 was normal with mild mitral and mild to moderate tricuspid regurgitation. The patient has been having difficulty swallowing and weight loss, subsequently underwent evaluation by Dr. Damon and was found to have the evidence of esophageal mass. He is undergoing further workup and has been seen in Dr. Venegas. No treatment was started in that regard. He had no focal weakness with the presentation and no speech disturbance. He has a history of peripheral edema that has been improving. He has no clear PND nor orthopnea. He has a history of hypertension, hyperlipidemia and diabetes. March 14: The patient feels better today, he feels that his memory is better. He has no focal weakness. He continues to be in atrial fibrillation and back on anticoagulation. He continues to have difficulty swallowing. He denies any dizziness or palpitations. His echocardiogram showed a preserved systolic function with mild mitral, aortic and tricuspid regurgitation. Medications: Amlodipine 5 mg daily, Lipitor 10 mg daily, glyburide, losartan 100 mg daily, metoprolol 25 mg twice a day, hydrochlorothiazide 6.25 mg daily, Actos, potassium,Xarelto 20 mg daily PHYSICAL EXAMINATION: Blood pressure 153/90 heart rate 90 LUNGS: Clear to auscultation HEART: Irregular rate and rhythm, S1, S2. No S3. systolic ejection murmur ABDOMEN: Soft, nontender, no organomegaly EXTREMETIES: +1-2 edema LAB: Potassium 3.8, BUN 16, creatinine 0.9, sodium 139 IMPRESSION: 1. CVA most likely secondary to the disruption of anticoagulation 2. Persistent atrial fibrillation 3. Esophageal cancer with malignant pleural effusion 4. History of hypertension 5. History of diabetes 6. History of hyperlipidemia PLAN: 1. Increase beta shadia 2. Increased hydrochlorothiazide 3. Continue anticoagulation 4. Depending on his progress further recommendations will be made Objective - Vital Signs Vital signs: Vital Signs Temp 98.2 F 03/14/22 09:02 Pulse 102 H 03/14/22 10:37 Resp 18 03/14/22 10:37 BP 153/99 03/14/22 09:02 Pulse Ox 93 L 03/14/22 09:02 FiO2 Intake & Output 03/13/22 03/14/22 03/14/22 18:59 06:59 18:59 Intake Total 485 Balance 485 Intake: Oral 485 Other: Voiding Method Toilet Toilet Toilet # Voids 1 2 - Labs CBC & Chem 7: 03/14/22 07:26 03/14/22 07:26 Labs: Abnormal Lab Results - Last 24 Hours (Table) 03/13/22 03/13/22 03/14/22 Range/Units 16:44 20:03 06:12 WBC (3.8-10.6) k/uL Neutrophils # (1.3-7.7) k/uL Glucose (74-99) mg/dL POC Glucose (mg/dL) 122 H 137 H 128 H (70-110) mg/dL 03/14/22 03/14/22 03/14/22 Range/Units 07:26 07:26 11:46 WBC 11.8 H (3.8-10.6) k/uL Neutrophils # 8.2 H (1.3-7.7) k/uL Glucose 202 H (74-99) mg/dL POC Glucose (mg/dL) 120 H (70-110) mg/dL
[2022-03-14 12:15] VITALS: BP 162/96; PULSE 87
--- NOTE | 2022-03-14 19:38 | DS ---
DISCHARGE SUMMARY FINAL DIAGNOSES: 1. Acute stroke involving the inferior left occipital lobe extending to the posteromedial left parietal lobe. 2. History of recent thoracocenteses and anticoagulation interruption. 3. History of metastatic esophageal adenocarcinoma. 4. History of atrial fibrillation. 5. Multiple medical issues. DISCHARGE DISPOSITION: The patient will be discharged in stable condition and guarded prognosis. HISTORY OF PRESENT ILLNESS: This is a 71-year-old gentleman with a past medical history admitted with features of acute stroke as mentioned earlier. MRA showed a stroke, but the patient was clinically stable and improved. Neurology saw the patient and the stroke was thought to be due to the anticoagulation interruption and Neurology recommend outpatient treatment. Cardiology also saw the patient while in the hospital. PHYSICAL EXAMINATION: VITAL SIGNS: Stable. CARDIOVASCULAR: S1, S2. ABDOMEN: Soft. NERVOUS SYSTEM: No focal deficits. DISCHARGE ADVICE AND MEDICATIONS: Recommend to continue the home medications including Xarelto 20 mg daily. Please refer to the discharge records and medications for discharge medications. Follow up with Dr. Marcelino Gomez in 1 to 2 days and follow up with Dr. Shannon as recommended. MMODL / IJN: [id number] /
[2022-03-14] MEDS ORDERED: METOPROLOL TARTRATE 50 MG TAB PO SCH (21:00)
[2022-03-15] MEDS ORDERED: hydroCHLOROthiazide 12.5 MG CAP PO SCH (09:00)
== END 2022-03-14 15:11 | disposition home or self-care (01) | DRG 65 ==
LOC: EC 09:44 → 3SCARD 13:43
PROVIDERS: ADMIT Hospitalist; ATTEND Hospitalist
DX: I63.532 Cerebral infarction due to unspecified occlusion or stenosis of left posterior cerebral artery (principal); C15.9 Malignant neoplasm of esophagus, unspecified; I48.19 Other persistent atrial fibrillation; J91.0 Malignant pleural effusion; Z68.41 Body mass index [BMI] 40.0-44.9, adult; C78.02 Secondary malignant neoplasm of left lung; C78.01 Secondary malignant neoplasm of right lung; G47.30 Sleep apnea, unspecified; I10 Essential (primary) hypertension; I25.10 Atherosclerotic heart disease of native coronary artery without angina pectoris; I08.3 Combined rheumatic disorders of mitral, aortic and tricuspid valves; E78.5 Hyperlipidemia, unspecified; E66.9 Obesity, unspecified; I65.23 Occlusion and stenosis of bilateral carotid arteries; R13.10 Dysphagia, unspecified; R29.700 NIHSS score 0; Z79.01 Long term (current) use of anticoagulants; Z79.84 Long term (current) use of oral hypoglycemic drugs; Z79.899 Other long term (current) drug therapy; Z85.01 Personal history of malignant neoplasm of esophagus; Z87.440 Personal history of urinary (tract) infections; Z85.51 Personal history of malignant neoplasm of bladder; Z88.8 Allergy status to other drugs, medicaments and biological substances; Z88.0 Allergy status to penicillin
CPT/HCPCS: 36415; 80048; 80061; 83036; 85025; 93005; 93306; 93880; 99285

== ENCOUNTER 2022-05-10 15:13 | Emergency (ER) | payer MEDICARE ==
[2022-05-10 15:24] VITALS: BP 123/98; PULSE 114; RESP 16; TEMP 96.7
[2022-05-10] MEDS ORDERED: IPRATROPIUM-ALBUTEROL 3 ML NEB INHALATION PRN (15:29)
--- NOTE | 2022-05-10 15:32 | ED ---
General Adult HPI - General Chief complaint: Altered Mental Status Stated complaint: AMS Time Seen by Provider: 05/10/22 15:15 Source: EMS, RN notes reviewed, old records reviewed (Reviewed previous admission stating patient for code) Mode of arrival: EMS Limitations: altered mental status - History of Present Illness Initial comments: Patient is unresponsive 71-year-old male presenting to the emergency department by EMS. Patient is nonverbal and provides no history. Patient has reported history of esophageal and lung cancer and currently is on treatment, last within the past few weeks. Unclear patient has history of similar symptoms previously. - Related Data Home Medications Medication Instructions Recorded Confirmed Multivitamin [Men's Multi-Vitamin] 1 tab PO DAILY 07/04/14 04/09/22 Rivaroxaban [Xarelto] 20 mg PO DAILY 10/11/17 04/09/22 metFORMIN HCL [Glucophage] 500 mg PO BID 10/11/17 04/09/22 Glimepiride [Amaryl] 2 mg PO DAILY 01/15/20 04/09/22 Pioglitazone [Actos] 15 mg PO DAILY 01/15/20 04/09/22 Potassium Chloride [Klor-Con 20 20 meq PO DAILY PRN 02/10/22 04/09/22 Packets] Atorvastatin [Lipitor] 10 mg PO DAILY 03/12/22 04/09/22 Pantoprazole Sodium [Protonix] 40 mg PO DAILY 03/12/22 04/09/22 Previous Rx's Medication Instructions Recorded Furosemide [Lasix] 40 mg PO DAILY #30 tab 04/08/22 ALPRAZolam [Xanax] 0.25 mg PO TID PRN #4 tab 04/14/22 Albuterol Inhaler [Ventolin Hfa 2 puff INHALATION RT-QID each 04/14/22 Inhaler] Albuterol Inhaler [Ventolin Hfa 2 puff INHALATION RT-QID PRN each 04/14/22 Inhaler] Aspirin 81 mg PO DAILY tab 04/14/22 Docusate [Colace] 100 mg PO DAILY PRN cap 04/14/22 Folic Acid 1 mg PO DAILY@1200 tab 04/14/22 HYDROcodone/APAP 5-325MG [[place] 1 each PO Q6HR PRN #4 tab 04/14/22 5-325] Melatonin 5 mg PO HS tab 03/01/23 Metoprolol Tartrate [Lopressor] 25 mg PO TID tab 04/14/22 QUEtiapine [SEROquel] 12.5 mg PO HS tab 04/14/22 Thiamine [Vitamin B-1] 100 mg PO DAILY@1200 tab 04/14/22 Tiotropium 2.5 Mcg/Puff [Spiriva 2 puff INHALATION RT-DAILY each 04/14/22 Respimat 2.5 Mcg] bisacodyL [Dulcolax] 10 mg RECTAL ONCE PRN suppositor 04/14/22 Allergies Allergy/AdvReac Type Severity Reaction Status Date / Time nitrofurantoin Allergy Rash/Hives Verified 04/09/22 07:51 [From Macrobid] nitrofurantoin Allergy Rash/Hives/ Verified 04/09/22 07:51 macrocrystalline Swelling [From Macrobid] Penicillins Allergy Unknown Verified 04/09/22 07:51 Childhood Review of Systems ROS Statement: Those systems with pertinent positive or pertinent negative responses have been documented in the HPI. ROS Other: All systems not noted in ROS Statement are negative. Limitations: ROS unobtainable due to patients medical condition Past Medical History Past Medical History: Atrial Fibrillation, Cancer, CVA/TIA, Hypertension, Prostate Disorder, Sleep Apnea/CPAP/BIPAP Additional Past Medical History / Comment(s): HX OF BLADDER CA, HX BLADDER STONES, RECURRENT UTI, CPAP @ HS; enlarged prostate History of Any Multi-Drug Resistant Organisms: None Reported Past Surgical History: Bladder Surgery, Prostate Surgery, Tonsillectomy Additional Past Surgical History / Comment(s): BLADDER resection , TURP, LAP BAND, COLONOSCOPY, LEFT partial nephrectomy; right-sided thoracentesis 03/04/2022 Past Anesthesia/Blood Transfusion Reactions: No Reported Reaction Past Psychological History: No Psychological Hx Reported Smoking Status: Former smoker Past Alcohol Use History: Rare Past Drug Use History: None Reported - Past Family History Father Family Medical History: Cancer Additional Family Medical History / Comment(s): Colon cancer. Mother Family Medical History: Diabetes Mellitus, Hypertension General Exam Limitations: altered mental status, physical limitation General appearance: obtunded Head exam: Present: atraumatic Eye exam: Present: normal appearance, PERRL ENT exam: Present: normal oropharynx Neck exam: Present: normal inspection Respiratory exam: Present: normal lung sounds bilaterally Cardiovascular Exam: Present: tachycardia GI/Abdominal exam: Present: soft. Absent: tenderness Extremities exam: Present: pedal edema Neurological exam: Present: altered Expanded Neurological exam: Absent: protecting the airway (Gag reflex not present) Eye Response: (1) no response Motor Response: (1) no motor response Verbal Response: (1) no verbal response Psychiatric exam: Present: other (Nonverbal) Skin exam: Present: normal color Course Vital Signs 05/10/22 05/10/22 15:17 15:30 Temperature 96.7 F L Pulse Rate 114 H Respiratory 16 Rate Blood Pressure 123/98 O2 Sat by Pulse 100 Oximetry Fraction of 100 Inspired Oxygen (FIO2) - Reevaluation(s) Reevaluation #1: 05/10/22 15:45 Prior to intubation family did arrive. Discussion had with and 4 other family members. They do not want patient to be advanced care and want patient to be comfort care. Lately the patient has been wishing to the past few days. Patient has been unresponsive for over 12 hours now. EKG Findings - EKG Results: EKG: interpreted by ERMD ([place] indeterminate. Right bundle branch block. Nonspecific ST-T.) EKG shows: tachycardia, atrial fibrillation Medical Decision Making - Medical Decision Making Was pt. sent in by a medical professional or institution (, PA, ACOUSTICS TEACHER, urgent care, hospital, or care home...) When possible be specific @ -No Did you speak to anyone other than the patient for history (EMS, parent, family, police, friend...)? What history was obtained from this source @ -EMS right history as patient is unresponsive Did you review nursing and triage notes (agree or disagree)? Why? @ -I reviewed and agree with nursing and triage notes Were old charts reviewed (outside hosp., previous admission, EMS record, old EKG, old radiological studies, urgent care reports/EKG's, care home records)? Report findings @ -Previous admission reviewed Differential Diagnosis (chest pain, altered mental status, abdominal pain women, abdominal pain men, vaginal bleeding, weakness, fever, dyspnea, syncope, headache, dizziness, GI bleed, back pain, seizure, CVA, palpatations, mental health)? @ -Differential Altered Mental Status: Hypoglycemia, DKA, hypercapnia, ETOH, overdose, CO poisoning, trauma, myxedema coma, HTN encephalopathy, infection, encephalitis, psychosis, intercranial hemorrhage, hepatic encephalopathy, meningitis, CVA, this is not meant to be an all-inclusive list EKG interpreted by me (3pts min.). @ -As above X-rays interpreted by me (1pt min.). @ -None done CT interpreted by me (1pt min.). @ -None done U/S interpreted by me (1pt. min.). @ -None done What testing was considered but not performed or refused? (CT, X-rays, U/S, labs)? Why? @ -None What meds were considered but not given or refused? Why? @ -None Did you discuss the management of the patient with other professionals (professionals i.e. , PA, ACOUSTICS TEACHER, lab, RT, psych nurse, social work msw, dry color tester, teacher, protective services officer, case finishing machine adjuster)? Give summary @ -Case was discussed with Dr. Jackson, who will admit for hospital call. Case was also discussed with admitting nurse who will attempt to make patient hospice care. Was smoking cessation discussed for >3mins.? @ -No Was critical care preformed (if so, how long)? @ -No Were there social determinants of health that impacted care today? How? (Homelessness, low income, unemployed, alcoholism, drug addiction, transportation, low edu. Level, literacy, decrease access to med. care, prison, rehab)? @ -No Was there de-escalation of care discussed even if they declined (Discuss DNR or withdrawal of care, Hospice)? DNR status @ -Discussion with family members and patient will be comfort care only. Patient will be DO NOT RESUSCITATE. What co-morbidities impacted this encounter? (DM, HTN, Smoking, COPD, CAD, Cancer, CVA, ARF, Chemo, Hep., AIDS, mental health diagnosis, sleep apnea, morbid obesity)? @ -None Was patient admitted / discharged? Hospital course, mention meds given and route, prescriptions, significant lab abnormalities, going to OR and other pertinent info. @ -Patient will be admitted for comfort care Undiagnosed new problem with uncertain prognosis? @ -No Drug Therapy requiring intensive monitoring for toxicity (Heparin, Nitro, Insulin, Cardizem)? @ -No Were any procedures done? @ -No Diagnosis/symptom? @ -Altered mental status Acute, or Chronic, or Acute on Chronic? @ -Acute Uncomplicated (without systemic symptoms) or Complicated (systemic symptoms)? @ -default Side effects of treatment? @ -No Exacerbation, Progression, or Severe Exacerbation? @ -No Poses a threat to life or bodily function? How? (Chest pain, [place], SC, pneumonia, PE, COPD, DKA, ARF, appy, cholecystitis, CVA, Diverticulitis, Homicidal, Suicidal, threat to staff... and all critical care pts) @ -No - Lab Data Lab Results 05/10/22 Range/Units 15:43 POC Glucose (mg/dL) 175 H (70-110) mg/dL POC Glu Quality Systems Manager ID Bobby Gorman Disposition Clinical Impression: Altered mental status Disposition: ADMITTED IP TO THIS HOSP Condition: Serious Is patient prescribed a controlled substance at d/c from ED?: No Referrals: None,Stated [Primary Care Provider] - 1-2 days Time of Disposition: 15:54
[2022-05-10 15:45] LABS: Glucose,Whole Blood 175 mg/dL (70-110)
--- NOTE | 2022-05-10 16:07 | P.HPIM ---
History of Present Illness 71-year-old male was brought into emergency department after he was found unresponsive for about 12 hours. Patient does have history of esophageal cancer and lung cancer and is currently receiving treatment. Patient's family does not want to pursue further treatment and patient was subsequently made comfort care and will be admitted for comfort care/[facility]IP. REVIEW OF SYSTEMS: Unable to obtain due to his clinical condition PHYSICAL EXAMINATION: GENERAL: Patient is barely responsive HEENT: Pupils are round and equally react ing to light. EOMI. No scleral icterus. No conjunctival pallor. Normocephalic, atraumatic. No pharyngeal erythema. No thyromegaly. CARDIOVASCULAR: S1 and S2 present. No murmurs, rubs, or gallops. PULMONARY: Bilateral rhonchi ABDOMEN: Soft, nontender, nondistended, normoactive bowel sounds. No palpable organomegaly. MUSCULOSKELETAL: No joint swelling or deformity. EXTREMITIES: No cyanosis, clubbing, or pedal edema. NEUROLOGICAL: Patient is unresponsive SKIN: No rashes. Assessment and plan -Metastatic esophageal adenocarcinoma with multiple recent hospitalizations for recurrent pleural effusions. Patient will be admitted for inpatient hospice/comfort care -Type 2 diabetes mellitus -Assess reflux disease -Hyperlipidemia -Atrial fibrillation on anticoagulation Past Medical History Past Medical History: Atrial Fibrillation, Cancer, CVA/TIA, Hypertension, Prostate Disorder, Sleep Apnea/CPAP/BIPAP Additional Past Medical History / Comment(s): HX OF BLADDER CA, HX BLADDER STONES, RECURRENT UTI, CPAP @ HS; enlarged prostate History of Any Multi-Drug Resistant Organisms: None Reported Past Surgical History: Bladder Surgery, Prostate Surgery, Tonsillectomy Additional Past Surgical History / Comment(s): BLADDER resection , TURP, LAP BAND, COLONOSCOPY, LEFT partial nephrectomy; right-sided thoracentesis 03/04/2022 Past Anesthesia/Blood Transfusion Reactions: No Reported Reaction Past Psychological History: No Psychological Hx Reported Smoking Status: Former smoker Past Alcohol Use History: Rare Past Drug Use History: None Reported - Past Family History Father Family Medical History: Cancer Additional Family Medical History / Comment(s): Colon cancer. Mother Family Medical History: Diabetes Mellitus, Hypertension Medications and Allergies Home Medications Medication Instructions Recorded Confirmed Type Multivitamin [Men's Multi-Vitamin] 1 tab PO DAILY 07/04/14 04/09/22 History Rivaroxaban [Xarelto] 20 mg PO DAILY 10/11/17 04/09/22 History metFORMIN HCL [Glucophage] 500 mg PO BID 10/11/17 04/09/22 History Glimepiride [Amaryl] 2 mg PO DAILY 01/15/20 04/09/22 History Pioglitazone [Actos] 15 mg PO DAILY 01/15/20 04/09/22 History Potassium Chloride [Klor-Con 20 20 meq PO DAILY PRN 02/10/22 04/09/22 History Packets] Atorvastatin [Lipitor] 10 mg PO DAILY 03/12/22 04/09/22 History Pantoprazole Sodium [Protonix] 40 mg PO DAILY 03/12/22 04/09/22 History Furosemide [Lasix] 40 mg PO DAILY #30 tab 04/08/22 04/09/22 Rx ALPRAZolam [Xanax] 0.25 mg PO TID PRN #4 tab 04/14/22 Rx Albuterol Inhaler [Ventolin Hfa 2 puff INHALATION RT-QID each 04/14/22 Rx Inhaler] Albuterol Inhaler [Ventolin Hfa 2 puff INHALATION RT-QID PRN each 04/14/22 Rx Inhaler] Aspirin 81 mg PO DAILY tab 04/14/22 Rx Docusate [Colace] 100 mg PO DAILY PRN cap 04/14/22 Rx Folic Acid 1 mg PO DAILY@1200 tab 04/14/22 Rx HYDROcodone/APAP 5-325MG [[place] 1 each PO Q6HR PRN #4 tab 04/14/22 Rx 5-325] Melatonin 5 mg PO HS tab 04/14/22 Rx Metoprolol Tartrate [Lopressor] 25 mg PO TID tab 04/14/22 Rx QUEtiapine [SEROquel] 12.5 mg PO HS tab 04/14/22 Rx Thiamine [Vitamin B-1] 100 mg PO DAILY@1200 tab 04/14/22 Rx Tiotropium 2.5 Mcg/Puff [Spiriva 2 puff INHALATION RT-DAILY each 04/14/22 Rx Respimat 2.5 Mcg] bisacodyL [Dulcolax] 10 mg RECTAL ONCE PRN suppositor 04/14/22 Rx Allergies Allergy/AdvReac Type Severity Reaction Status Date / Time nitrofurantoin Allergy Rash/Hives Verified 04/09/22 07:51 [From Macrobid] nitrofurantoin Allergy Rash/Hives/ Verified 04/09/22 07:51 macrocrystalline Swelling [From Macrobid] Penicillins Allergy Unknown Verified 04/09/22 07:51 Childhood Physical Exam Vitals: Vital Signs Temp Pulse Resp BP Pulse Ox FiO2 05/10/22 15:30 100 05/10/22 15:17 96.7 F L 114 H 16 123/98 100 Intake and Output 05/10/22 05/10/22 05/10/22 06:59 14:59 22:59 Other: Weight 108.862 kg Results Labs: Abnormal Lab Results - Last 24 Hours (Table) 05/10/22 Range/Units 15:43 POC Glucose (mg/dL) 175 H (70-110) mg/dL
[2022-05-10] MEDS ORDERED: CHLORHEXIDINE GLUCONATE 15 ML CUP MUCOUS MEM SCH (21:00)
--- NOTE | 2022-05-10 21:51 | P.DS ---
Providers Expected date of discharge: 05/10/22 Primary care physician: Marcelino Gomez Hospital Course: Final diagnosis -Metastatic esophageal adenocarcinoma with multiple recent hospitalizations for recurrent pleural effusions. Patient will be admitted for inpatient hospice/comfort care -Type 2 diabetes mellitus -Assess reflux disease -Hyperlipidemia -Atrial fibrillation on anticoagulation Discharge disposition Patient is being certain [facility] services with comfort care measures only. Total time taken is greater than 35 minutes. Hospital course This is a 71-year-old male who was found unresponsive has a significant history and came from [place] and family wishing to pursue comfort measures and met with [facility] and is being flipped to [facility] as he is appropriate. We'll continue to monitor with [facility] following. Patient was started on morphine drip. Please refer to previous documentation along with emergency room documentation for further HPI. The impression and plan of care has been dictated by Natalie Carpenter, Nurse Practitioner as directed. MD Lisset I have performed a history and examination and MDM of this patient, discussed the same with the dictator, and agree with the dictator's assessment and plan as written ,documented as a scribe. Based on total visit time, I have performed more than 50% of the visit. Patient Condition at Discharge: Serious Plan - Discharge Summary New Discharge Prescriptions: No Action Multivitamin [Men's Multi-Vitamin] 1 tab PO DAILY metFORMIN HCL [Glucophage] 500 mg PO BID Rivaroxaban [Xarelto] 20 mg PO DAILY Pioglitazone [Actos] 15 mg PO DAILY Glimepiride [Amaryl] 2 mg PO DAILY Pantoprazole Sodium [Protonix] 40 mg PO DAILY bisacodyL [Dulcolax] 10 mg RECTAL ONCE PRN suppositor PRN Reason: Constipation Metoprolol Tartrate [Lopressor] 25 mg PO TID tab Melatonin 5 mg PO HS tab HYDROcodone/APAP 5-325MG [[place] 5-325] 1 each PO Q6HR PRN #4 tab PRN Reason: Pain QUEtiapine [SEROquel] 12.5 mg PO HS tab Albuterol Inhaler [Ventolin Hfa Inhaler] 2 puff INHALATION RT-QID each Albuterol Inhaler [Ventolin Hfa Inhaler] 2 puff INHALATION RT-QID PRN each PRN Reason: Shortness Of Breath Or Wheezing Potassium Chloride [Klor-Con 20 Packets] 20 meq PO DAILY PRN PRN Reason: W/LASIX Atorvastatin [Lipitor] 10 mg PO DAILY Furosemide [Lasix] 40 mg PO DAILY #30 tab Aspirin 81 mg PO DAILY tab Docusate [Colace] 100 mg PO DAILY PRN cap PRN Reason: Constipation Folic Acid 1 mg PO DAILY@1200 tab Tiotropium 2.5 Mcg/Puff [Spiriva Respimat 2.5 Mcg] 2 puff INHALATION RT-DAILY each Thiamine [Vitamin B-1] 100 mg PO DAILY@1200 tab ALPRAZolam [Xanax] 0.25 mg PO TID PRN #4 tab PRN Reason: Anxiety Discharge Medication List Multivitamin [Men's Multi-Vitamin] 1 tab PO DAILY 07/04/14 [History] Rivaroxaban [Xarelto] 20 mg PO DAILY 10/11/17 [History] metFORMIN HCL [Glucophage] 500 mg PO BID 10/11/17 [History] Glimepiride [Amaryl] 2 mg PO DAILY 01/15/20 [History] Pioglitazone [Actos] 15 mg PO DAILY 01/15/20 [History] Potassium Chloride [Klor-Con 20 Packets] 20 meq PO DAILY PRN 02/10/22 [History] Atorvastatin [Lipitor] 10 mg PO DAILY 03/12/22 [History] Pantoprazole Sodium [Protonix] 40 mg PO DAILY 03/12/22 [History] Furosemide [Lasix] 40 mg PO DAILY #30 tab 04/08/22 [Rx] ALPRAZolam [Xanax] 0.25 mg PO TID PRN #4 tab 04/14/22 [Rx] Albuterol Inhaler [Ventolin Hfa Inhaler] 2 puff INHALATION RT-QID each 04/14/22 [Rx] Albuterol Inhaler [Ventolin Hfa Inhaler] 2 puff INHALATION RT-QID PRN each 04/14/22 [Rx] Aspirin 81 mg PO DAILY tab 04/14/22 [Rx] Docusate [Colace] 100 mg PO DAILY PRN cap 04/14/22 [Rx] Folic Acid 1 mg PO DAILY@1200 tab 04/14/22 [Rx] HYDROcodone/APAP 5-325MG [[place] 5-325] 1 each PO Q6HR PRN #4 tab 04/14/22 [Rx] Melatonin 5 mg PO HS tab 04/14/22 [Rx] Metoprolol Tartrate [Lopressor] 25 mg PO TID tab 04/14/22 [Rx] QUEtiapine [SEROquel] 12.5 mg PO HS tab 04/14/22 [Rx] Thiamine [Vitamin B-1] 100 mg PO DAILY@1200 tab 04/14/22 [Rx] Tiotropium 2.5 Mcg/Puff [Spiriva Respimat 2.5 Mcg] 2 puff INHALATION RT-DAILY each 04/14/22 [Rx] bisacodyL [Dulcolax] 10 mg RECTAL ONCE PRN suppositor 04/14/22 [Rx] Follow up Appointment(s)/Referral(s): None,Stated [REFERRING] - 1-2 days Discharge Disposition: ADMITTED IP TO THIS HOSP
== END 2022-05-10 17:27 | disposition other institution (70) ==
LOC: EC 15:13
DX: R41.82 Altered mental status, unspecified (principal); I10 Essential (primary) hypertension; E11.9 Type 2 diabetes mellitus without complications; I48.91 Unspecified atrial fibrillation; E78.5 Hyperlipidemia, unspecified; Z79.84 Long term (current) use of oral hypoglycemic drugs; Z79.01 Long term (current) use of anticoagulants; Z79.899 Other long term (current) drug therapy; Z86.73 Personal history of transient ischemic attack (TIA), and cerebral infarction without residual deficits; Z87.891 Personal history of nicotine dependence; Z88.0 Allergy status to penicillin; Z88.1 Allergy status to other antibiotic agents
CPT/HCPCS: 36415; 99285

== ENCOUNTER 2022-05-10 17:17 | Inpatient (IN) | payer MEDICAID ==
[2022-05-10] MEDS ORDERED: GLYCOPYRROLATE 0.2 MG/ML 2 ML VIAL IVP PRN (17:20)
[2022-05-10] MEDS ORDERED: ATROPINE OPHTH SOLN 1% 5ML BTL SUBLINGUAL PRN (17:20)
[2022-05-10] MEDS ORDERED: MORPHINE SULFATE 4 MG/ML SYRINGE IV PRN (17:20)
[2022-05-10] MEDS ORDERED: DRY MOUTH SPRAY 44.3 SPRAY/44.3 ML SPRAY MUCOUS MEM PRN (17:20)
[2022-05-10] MEDS ORDERED: LORazepam 2 MG/ML INJ IV PRN (17:20)
[2022-05-10] MEDS ORDERED: ONDANSETRON 4 MG/2 ML VIAL IVP PRN (17:20)
[2022-05-10] MEDS ORDERED: ACETAMINOPHEN SUPPOSITORY 650 MG SUPP RECTAL PRN (17:20)
[2022-05-10] MEDS ORDERED: SCOPOLAMINE 1 MG/72 HR PATCH TRANSDERM SCH (17:30)
[2022-05-10] MEDS ORDERED: MORPHINE SULFATE (100 MG/2 ML) 100 MG in SODIUM CHLORIDE 0.9% 100 ML IV SCH (17:30)
--- NOTE | 2022-05-10 21:41 | P.HPIM ---
History of Present Illness H&P Date: 05/10/22 71-year-old male was brought into emergency department after he was found unresponsive for about 12 hours. Patient does have history of esophageal cancer and lung cancer and is currently receiving treatment. Patient's family does not want to pursue further treatment and patient was subsequently made comfort care and will be admitted for comfort care/[facility]. 05/10/2022 Patient is being admitted to [facility] services. REVIEW OF SYSTEMS: Unable to obtain due to his clinical condition PHYSICAL EXAMINATION: GENERAL: Patient is barely responsive HEENT: Pupils are round and equally reacting to light. EOMI. No scleral icterus. No conjunctival pallor. Normocephalic, atraumatic. No pharyngeal erythema. No thyromegaly. CARDIOVASCULAR: S1 and S2 present. No murmurs, rubs, or gallops. PULMONARY: Bilateral rhonchi ABDOMEN: Soft, nontender, nondistended, normoactive bowel sounds. No palpable organomegaly. MUSCULOSKELETAL: No joint swelling or deformity. EXTREMITIES: No cyanosis, clubbing, or pedal edema. NEUROLOGICAL: Patient is unresponsive SKIN: No rashes. Assessment and plan -Metastatic esophageal adenocarcinoma with multiple recent hospitalizations for recurrent pleural effusions. Patient will be admitted for inpatient hospice/comfort care -Type 2 diabetes mellitus -Assess reflux disease -Hyperlipidemia -Atrial fibrillation on anticoagulation Plan: Patient will be flipped inpatient [facility] services and made comfort measures with morphine drip started Overall prognosis remains poor Multiple family members present with comfort orders placed. Past Medical History Past Medical History: Atrial Fibrillation, Cancer, CVA/TIA, Hypertension, Prostate Disorder, Sleep Apnea/CPAP/BIPAP Additional Past Medical History / Comment(s): HX OF BLADDER CA, HX BLADDER STONES, RECURRENT UTI, CPAP @ HS; enlarged prostate History of Any Multi-Drug Resistant Organisms: None Reported Past Surgical History: Bladder Surgery, Prostate Surgery, Tonsillectomy Additional Past Surgical History / Comment(s): BLADDER resection , TURP, LAP BAND, COLONOSCOPY, LEFT partial nephrectomy; right-sided thoracentesis 03/04/2022 Past Anesthesia/Blood Transfusion Reactions: No Reported Reaction Past Psychological History: No Psychological Hx Reported Additional Psychological History / Comment(s): Short-term memory loss after stroke Smoking Status: Former smoker Past Alcohol Use History: Rare Additional Past Alcohol Use History / Comment(s): Quit smoking 40 years ago. Past Drug Use History: None Reported - Past Family History Father Family Medical History: Cancer Additional Family Medical History / Comment(s): Colon cancer. Mother Family Medical History: Diabetes Mellitus, Hypertension Medications and Allergies Home Medications Medication Instructions Recorded Confirmed Type Multivitamin [Men's Multi-Vitamin] 1 tab PO DAILY 07/04/14 04/09/22 History Rivaroxaban [Xarelto] 20 mg PO DAILY 10/11/17 04/09/22 History metFORMIN HCL [Glucophage] 500 mg PO BID 10/11/17 04/09/22 History Glimepiride [Amaryl] 2 mg PO DAILY 01/15/20 04/09/22 History Pioglitazone [Actos] 15 mg PO DAILY 01/15/20 04/09/22 History Potassium Chloride [Klor-Con 20 20 meq PO DAILY PRN 02/10/22 04/09/22 History Packets] Atorvastatin [Lipitor] 10 mg PO DAILY 03/12/22 04/09/22 History Pantoprazole Sodium [Protonix] 40 mg PO DAILY 03/12/22 04/09/22 History Furosemide [Lasix] 40 mg PO DAILY #30 tab 04/08/22 04/09/22 Rx ALPRAZolam [Xanax] 0.25 mg PO TID PRN #4 tab 04/14/22 Rx Albuterol Inhaler [Ventolin Hfa 2 puff INHALATION RT-QID each 04/14/22 Rx Inhaler] Albuterol Inhaler [Ventolin Hfa 2 puff INHALATION RT-QID PRN each 04/14/22 Rx Inhaler] Aspirin 81 mg PO DAILY tab 04/14/22 Rx Docusate [Colace] 100 mg PO DAILY PRN cap 04/14/22 Rx Folic Acid 1 mg PO DAILY@1200 tab 04/14/22 Rx HYDROcodone/APAP 5-325MG [[place] 1 each PO Q6HR PRN #4 tab 04/14/22 Rx 5-325] Melatonin 5 mg PO HS tab 04/14/22 Rx Metoprolol Tartrate [Lopressor] 25 mg PO TID tab 04/14/22 Rx QUEtiapine [SEROquel] 12.5 mg PO HS tab 04/14/22 Rx Thiamine [Vitamin B-1] 100 mg PO DAILY@1200 tab 04/14/22 Rx Tiotropium 2.5 Mcg/Puff [Spiriva 2 puff INHALATION RT-DAILY each 04/14/22 Rx Respimat 2.5 Mcg] bisacodyL [Dulcolax] 10 mg RECTAL ONCE PRN suppositor 04/14/22 Rx Allergies Allergy/AdvReac Type Severity Reaction Status Date / Time nitrofurantoin Allergy Rash/Hives Verified 04/09/22 07:51 [From Macrobid] nitrofurantoin Allergy Rash/Hives/ Verified 04/09/22 07:51 macrocrystalline Swelling [From Macrobid] Penicillins Allergy Unknown Verified 04/09/22 07:51 Childhood Physical Exam Vitals: Intake and Output 05/10/22 05/10/22 05/10/22 06:59 14:59 22:59 Intake Total 0.901 Balance 0.901 Intake: Intake, IV Titration 0.901 Amount Morphine Sulfate (100 mg/ 0.901 2 ml) 100 mg In Sodium Chloride 0.9% 100 ml @ 1 MG/HR 1.02 mls/hr IV . Q24H [facility] Rx#:[id number] Other: Weight 108.862 kg
--- NOTE | 2022-05-10 21:47 | P.DS ---
Providers Date of admission: 05/10/22 17:20 Expected date of discharge: 05/10/22 Attending physician: Tania Jackson Primary care physician: Marcelino Gomez [facility] Course: Preliminary cause of Metastatic esophageal adenocarcinoma Final diagnosis -Metastatic esophageal adenocarcinoma with multiple recent hospitalizations for recurrent pleural effusions -Type 2 diabetes mellitus -Gastroesophageal reflux disease -Hyperlipidemia -Atrial fibrillation on anticoagulation -Obesity with BMI of 31.7 -No code Discharge disposition Patient has . According to nursing documentation, time of was 2021 on 05/10/2022. Patient was placed on GIP hospice services with family members present and comfort measures only. Hospital course This is a 71-year-old male who was recently admitted from [facility] after being found unresponsive and had had multiple rehospitalizations most recently for continued pleural effusions with esophageal adenocarcinoma with metastasis and family ultimately made the patient comfort care measures and did not want to pursue further treatment. [facility] was contacted and discussed with family and agreeable and made GIP. Patient was placed on morphine drip and with family members present. Please refer to nursing documentation for further HPI. Patient 2021 on 05/10/2022. The impression and plan of care has been dictated by Nurse Pascual Darling titioner as directed. Dr. Renetta MD I have performed a history and examination and MDM of this patient, discussed the same with the dictator, and agree with the dictator's assessment and plan as written ,documented as a scribe. Based on total visit time, I have performed more than 50% of the visit. Patient Condition at Discharge: Poor Plan - Discharge Summary New Discharge Prescriptions: No Action Multivitamin [Men's Multi-Vitamin] 1 tab PO DAILY metFORMIN HCL [Glucophage] 500 mg PO BID Rivaroxaban [Xarelto] 20 mg PO DAILY Pioglitazone [Actos] 15 mg PO DAILY Glimepiride [Amaryl] 2 mg PO DAILY Pantoprazole Sodium [Protonix] 40 mg PO DAILY bisacodyL [Dulcolax] 10 mg RECTAL ONCE PRN suppositor PRN Reason: Constipation Metoprolol Tartrate [Lopressor] 25 mg PO TID tab Melatonin 5 mg PO HS tab HYDROcodone/APAP 5-325MG [[place] 5-325] 1 each PO Q6HR PRN #4 tab PRN Reason: Pain QUEtiapine [SEROquel] 12.5 mg PO HS tab Albuterol Inhaler [Ventolin Hfa Inhaler] 2 puff INHALATION RT-QID each Albuterol Inhaler [Ventolin Hfa Inhaler] 2 puff INHALATION RT-QID PRN each PRN Reason: Shortness Of Breath Or Wheezing Potassium Chloride [Klor-Con 20 Packets] 20 meq PO DAILY PRN PRN Reason: W/LASIX Atorvastatin [Lipitor] 10 mg PO DAILY Furosemide [Lasix] 40 mg PO DAILY #30 tab Aspirin 81 mg PO DAILY tab Docusate [Colace] 100 mg PO DAILY PRN cap PRN Reason: Constipation Folic Acid 1 mg PO DAILY@1200 tab Tiotropium 2.5 Mcg/Puff [Spiriva Respimat 2.5 Mcg] 2 puff INHALATION RT-DAILY each Thiamine [Vitamin B-1] 100 mg PO DAILY@1200 tab ALPRAZolam [Xanax] 0.25 mg PO TID PRN #4 tab PRN Reason: Anxiety Discharge Medication List Multivitamin [Men's Multi-Vitamin] 1 tab PO DAILY 07/04/14 [History] Rivaroxaban [Xarelto] 20 mg PO DAILY 10/11/17 [History] metFORMIN HCL [Glucophage] 500 mg PO BID 10/11/17 [History] Glimepiride [Amaryl] 2 mg PO DAILY 01/15/20 [History] Pioglitazone [Actos] 15 mg PO DAILY 01/15/20 [History] Potassium Chloride [Klor-Con 20 Packets] 20 meq PO DAILY PRN 02/10/22 [History] Atorvastatin [Lipitor] 10 mg PO DAILY 03/12/22 [History] Pantoprazole Sodium [Protonix] 40 mg PO DAILY 03/12/22 [History] Furosemide [Lasix] 40 mg PO DAILY #30 tab 04/08/22 [Rx] ALPRAZolam [Xanax] 0.25 mg PO TID PRN #4 tab 04/14/22 [Rx] Albuterol Inhaler [Ventolin Hfa Inhaler] 2 puff INHALATION RT-QID each 04/14/22 [Rx] Albuterol Inhaler [Ventolin Hfa Inhaler] 2 puff INHALATION RT-QID PRN each 04/14/22 [Rx] Aspirin 81 mg PO DAILY tab 04/14/22 [Rx] Docusate [Colace] 100 mg PO DAILY PRN cap 04/14/22 [Rx] Folic Acid 1 mg PO DAILY@1200 tab 04/14/22 [Rx] HYDROcodone/APAP 5-325MG [[place] 5-325] 1 each PO Q6HR PRN #4 tab 04/14/22 [Rx] Melatonin 5 mg PO HS tab 04/14/22 [Rx] Metoprolol Tartrate [Lopressor] 25 mg PO TID tab 04/14/22 [Rx] QUEtiapine [SEROquel] 12.5 mg PO HS tab 04/14/22 [Rx] Thiamine [Vitamin B-1] 100 mg PO DAILY@1200 tab 04/14/22 [Rx] Tiotropium 2.5 Mcg/Puff [Spiriva Respimat 2.5 Mcg] 2 puff INHALATION RT-DAILY each 04/14/22 [Rx] bisacodyL [Dulcolax] 10 mg RECTAL ONCE PRN suppositor 04/14/22 [Rx] Follow up Appointment(s)/Referral(s): Marcelino Gomez MD [Primary Care Provider] - 1 Week
== END 2022-05-10 23:57 | disposition expired | DRG 951 ==
LOC: EC 17:17 → 5NMEDONC 17:20
PROVIDERS: ADMIT Internal Medicine; ATTEND Internal Medicine
DX: Z51.5 Encounter for palliative care (principal); C15.9 Malignant neoplasm of esophagus, unspecified; J90 Pleural effusion, not elsewhere classified; C78.00 Secondary malignant neoplasm of unspecified lung; E11.9 Type 2 diabetes mellitus without complications; K21.9 Gastro-esophageal reflux disease without esophagitis; E78.5 Hyperlipidemia, unspecified; I10 Essential (primary) hypertension; I48.91 Unspecified atrial fibrillation; E66.9 Obesity, unspecified; Z68.31 Body mass index [BMI] 31.0-31.9, adult; G47.30 Sleep apnea, unspecified; Z66 Do not resuscitate; N40.0 Benign prostatic hyperplasia without lower urinary tract symptoms; Z90.5 Acquired absence of kidney; Z87.891 Personal history of nicotine dependence; Z87.440 Personal history of urinary (tract) infections; Z86.73 Personal history of transient ischemic attack (TIA), and cerebral infarction without residual deficits; Z79.01 Long term (current) use of anticoagulants; Z85.51 Personal history of malignant neoplasm of bladder; Z79.899 Other long term (current) drug therapy; Z79.84 Long term (current) use of oral hypoglycemic drugs; Z79.82 Long term (current) use of aspirin